=== PATIENT | female | born 1940 | race Caucasian/White ===

== ENCOUNTER 2023-11-28 09:40 | Emergency (ER) | payer MEDICARE, SELFPAY ==
[2023-11-28 09:47] VITALS: BP 122/54
[2023-11-28 10:13] LABS: % Basophils 0.9 % (0-2); % Eosinophils 1.9 % (0-6); % Immature Granulocytes 0.4 % (0-0.5); % Lymphocytes 29.3 % (20.5-51.1); % Monocytes 8.3 % (1.7-9.3); % Neutrophils 59.2 % (42.2-75.2); Absolute Eosinophils 0.1 10^3/uL (0-0.7); Absolute Lymphocytes 1.4 10^3/uL (1.2-3.4); Absolute Monocytes 0.4 10^3/uL (0.1-0.6); Absolute Neutrophils 2.8 10^3/uL (1.4-6.5); Hematocrit 35.6 % (37.0-47.0); Hemoglobin 12.1 g/dL (12.0-16.0); Mean Corpuscular Hgb 32.4 pg (27.0-31.0); Mean Corpuscular Volume 95.4 fL (81.0-99.0); Mean Platelet Volume 12.5 fL (7.4-10.4); Nucleated Red Blood Cells % 0 %; Platelet Count 212 10^3/uL (130-400); Red Blood Cell Count 3.73 10^6/uL (4.20-5.40); White Blood Cell Count 4.7 10^3/uL (4.8-10.8)
[2023-11-28 10:26] LABS: INR 1.37; PT 16.6 Sec (11.4-14.6)
[2023-11-28 11:03] LABS: ALT (SGPT) 19 U/L (0-35); AST (SGOT) 32 U/L (14-36); Albumin 4.1 g/dl (3.5-5.0); Alkaline Phosphatase 150 U/L (38-126); Blood Urea Nitrogen 28 mg/dl (7-17); Calcium 9.8 mg/dl (8.4-10.2); Carbon Dioxide 25 mmol/L (22-30); Chloride 107 mmol/L (98-107); Glucose 139 mg/dl (70-99); Potassium 4.4 mmol/L (3.5-5.1); Sodium 138 mmol/L (135-145); Total Bilirubin 0.5 mg/dl (0.2-1.3); Total Protein 6.8 g/dl (6.3-8.2); eGFR > 60.00
[2023-11-28 11:14] LABS: Troponin I < 0.012 ng/ml
--- NOTE | 2023-11-28 13:02 | ED.GENMED ---
History of Present Illness
General
Chief Complaint: Heart Rate Problem
Source: patient
Time Seen by Provider: 11/28/23 12:48
Travel History
Have you had any contact with someone who has COVID-19?: No
Do you have any symptoms of coronavirus? Fever > 100 degrees, chills, cough, shortness of breath, sore throat, loss of taste or smell, muscle aches, or headache?: No
History of Present Illness
History of Present Illness:
82-year-old female presents to the emergency room complaining of irregular and rapid heart rate. Patient has history of paroxysmal atrial fibrillation for which she takes Eliquis and diltiazem. When she woke up this morning she knew she did not
feel right. She checked her Apple Watch and it notified her that she was in A-fib. She was advised to come to the emergency room for evaluation and possible cardioversion. In triage the patient had an EKG which did show atrial fibrillation.
Currently the patient feels better than she did this morning. She has no complaints at this time.
Past History
Past History
ED Past Medical History: Arrthythmia (Atrial fib), HTN, IDDM and Other (Ulcers)
ED Past Surgical History: Orthopedic (Right hand surgery)
Social History
Tobacco: Non-smoker
Alcohol: Occasional
Drug: None
Personal:
Living: alone
Phy Exam
Physical Exam
Physical Exam:
General: Awake, Alert, Oriented X3. No acute distress.
Vitals: unremarkable
Head: Atraumatic
Eyes: Pupils equal, EOMI
Throat: Airway intact, no exudates
Neck: Trachea midline
Lungs: Clear and equal b/l
Heart: Regular rate, no murmurs
Abd: Soft, Nontender, No pulsatile mass
Neuro: Nonfocal
Skin: Warm, dry, no rash
Extremities: pulses equal b/l, no edema
Course
Orders/Labs/Results
Orders:
Orders
11/28/23 09:51
ECG [Electrocardiogram (*1)] Urgent
Reason for Study: Palpitations
11/28/23 09:52
EKG- Treatment ONCE
11/28/23 10:06
Complete Blood Count/With Diff Urgent
Comprehensive Metabolic Panel Urgent
PT/INR [Prothrombin Time] Urgent
Troponin I Urgent
Abnormal Lab Results
11/28/23
10:06
WBC 4.7 L 10^3/uL
(4.8-10.8)
RBC 3.73 L 10^6/uL
(4.20-5.40)
Hct 35.6 L %
(37.0-47.0)
MCH 32.4 H pg
(27.0-31.0)
MPV 12.5 H fL
(7.4-10.4)
PT 16.6 H Sec
(11.4-14.6)
BUN 28 H mg/dl
(7-17)
Glucose 139 H mg/dl
(70-99)
Alkaline Phosphatase 150 H U/L
(38-126)
11/28/23 10:06
11/28/23 10:06
Vital Signs
Initial and Last Documented VS:
Initial Vital Signs
Temp Pulse Resp BP Pulse Ox
98.1 F 89 18 122/54 97
11/28/23 09:47 11/28/23 09:47 11/28/23 09:47 11/28/23 09:47 11/28/23 09:47
Last Documented Vital Signs
Temp Pulse Resp BP Pulse Ox
98.1 F 65 17 122/54 97
11/28/23 09:47 11/28/23 14:45 11/28/23 14:45 11/28/23 09:47 11/28/23 09:47
MDM/Problems Addressed
Differential Diagnosis Includes:
Paroxysmal atrial fibrillation, PACs, SVT
MDM/Problems Addressed:
Patient presents after having rapid heart rate this morning when she woke up. EKG upon arrival here is A-fib however patient is spontaneously converted to normal sinus rhythm. She was observed for period of time and maintaining sinus rhythm.
Patient stable for discharge home.
*Pulse Oximetry
Patient hypoxic: no
*EKG
Interpreted by ED Provider?: Yes
Heart Rate: 135
Rate: tachycardiac
Rhythm: a-fib
[place]: normal axis
Interval: normal interval
QRS Pattern: normal QRS
Ischemia: no ischemia
*Cab Supervisor Interpretation
Rate: tachycardiac
Interpretation: abnormal
Heart Rate: 135
Rhythm: a-fib
*Critical Care Note
Total Time (30-74mins, 75-104mins- exclusive of procedures): Not Applicable
ED Attending Note
-
Portions of this chart may have been created with voice recognition software.� Occasional wrong word or��sound alike� substitutions may have occurred due to the inherent limitations of voice recognition software.
Discharge Plan
Departure
Patient Disposition: Home (Routine Discharge)
Date of Disposition: 11/28/23
Time of Disposition: 14:35
Patient with high blood pressure during this ER visit?: No
Condition: Good
Discharge Problem:
Paroxysmal A-fib
Instructions: Atrial Fibrillation (DC), BLOOD PRESSURE
Prescriptions:
No Action
medroxyprogesterone 2.5 MG tablet
2.5 mg PO DAILY
insulin aspart U-100 [Novolog U-100 Insulin aspart] 1,000 UNITS/10 ML solution
0 units SC .CONTINUOUS
Patient Comments:
insulin pump
estradiol 0.5 MG tablet
0.5 mg PO DAILY
vitamin A 8,000 UNIT capsule
8,000 unit PO DAILY
folic acid 0.4 MG tablet
0.4 mg PO DAILY
ascorbic acid (vitamin C) [Vitamin C] 500 MG tablet
500 mg PO DAILY
docosahexaenoic acid-epa 1 CAP capsule
1 cap PO DAILY
cholecalciferol (vitamin D3) 1,000 UNITS tablet
1,000 units PO DAILY
multivitamin with folic acid [Tab-A-Hannah] 1 TABLET tablet
1 tab PO DAILY
diltiazem HCl 120 MG capsule,extended release 24hr
120 mg PO DAILY Qty: 30 2RF
apixaban [Eliquis] 5 MG tablet
5 mg PO BID Qty: 60 2RF
Referrals:
NONE,* [Family Provider] -
Jovany Wallace MD [Active] -
Activity Restrictions/Additional Instructions:
Follow up with your foot and ankle surgeon
Interventions
Interventions:
*Risk Screen - Suicide Last Done: 11/28/23 13:00
*General Assessment Last Done: 11/28/23 13:00
*Neglect/Abuse Screening Last Done: 11/28/23 13:00
ED- Fall Risk Assessment Last Done: 11/28/23 13:00
*ED COVID-19 Vaccine History Last Done: 11/28/23 09:58
*Nursing Disposition Last Done: 11/28/23 15:08
ED- Cardiac Assessment Last Done: 11/28/23 13:00
ED- Pulmonary Assessment Last Done: 11/28/23 13:00
Discharge Date and Time
Discharge Date/Time: 11/28/23 15:08
Print Language: [place] ISLAND[place]
== END 2023-11-28 15:08 | disposition home or self-care (01) ==
LOC: EMR 09:40
PROVIDERS: Emergency Medicine; EMERGENCY PHYSICIAN Emergency Medicine
DX: I48.0 Paroxysmal atrial fibrillation (principal)
CPT/HCPCS: 99284; 80053; 84484; 85025; 85610; 93005

== ENCOUNTER → 2023-12-15 15:48 | Outpatient (REF) | payer MEDICARE, SELFPAY | LOC: DHCBS HW 15:48 | PROVIDERS: ATTENDING PHYSICIAN Internal Medicine Cardiovascular Disease; FAMILY PHYSICIAN Internal Medicine | DX: I48.0 Paroxysmal atrial fibrillation (principal) | CPT/HCPCS: 93306 ==

== ENCOUNTER → 2024-02-01 | Outpatient (REF) | payer MEDICARE, SELFPAY | LOC: DHSLP | PROVIDERS: ATTENDING PHYSICIAN Internal Medicine Cardiovascular Disease; FAMILY PHYSICIAN Internal Medicine | DX: G47.33 Obstructive sleep apnea (adult) (pediatric) (principal) | CPT/HCPCS: 95800 ==

== ENCOUNTER 2024-02-14 12:59 | Emergency (ER) | payer MEDICARE, SELFPAY ==
[2024-02-14 13:00] VITALS: BP 157/100
[2024-02-14 13:30] VITALS: BMI 23.7
--- NOTE | 2024-02-14 13:32 | ED.GENMED ---
History of Present Illness
General
Chief Complaint: Heart Rate Problem
Source: patient
Exam Limitations: none
Time Seen by Provider: 02/14/24 13:19
Travel History
Have you had any contact with someone who has COVID-19?: No
Do you have any symptoms of coronavirus? Fever > 100 degrees, chills, cough, shortness of breath, sore throat, loss of taste or smell, muscle aches, or headache?: No
History of Present Illness
History of Present Illness:
See MDM
Past History
Past History
ED Past Medical History: Arrthythmia (Atrial fib), HTN, IDDM and Other (Ulcers)
ED Past Surgical History: Orthopedic (Right hand surgery)
Social History
Tobacco: Non-smoker
Alcohol: Occasional
Drug: None
Personal:
Living: alone
Phy Exam
Physical Exam
Physical Exam:
See MDM
Course
Orders/Labs/Results
Orders:
Orders
02/14/24 13:04
Electrocardiogram (*1) Urgent
Reason for Study: Chest Pain
EKG- Treatment ONCE
02/14/24 13:30
Diltiazem HCl [Cardizem] 16 mg IV NOW STA
02/14/24 13:32
0.9% Sodium Chloride 1000 ml [Nss] 1,000 ml IV BOLUS
02/14/24 13:34
Complete Blood Count/With Diff Urgent
Comprehensive Metabolic Panel Urgent
Magnesium Urgent
Abnormal Lab Results
02/14/24
13:34
RBC 3.80 L 10^6/uL
(4.20-5.40)
Hct 35.0 L %
(37.0-47.0)
MCH 32.9 H pg
(27.0-31.0)
MPV 12.4 H fL
(7.4-10.4)
BUN 19 H mg/dl
(7-17)
02/14/24 13:34
02/14/24 13:34
Vital Signs
Initial and Last Documented VS:
Initial Vital Signs
Temp Pulse Resp BP Pulse Ox
99.2 F 154 20 157/100 98
02/14/24 13:00 02/14/24 13:00 02/14/24 13:00 02/14/24 13:00 02/14/24 13:00
Last Documented Vital Signs
Temp Pulse Resp BP Pulse Ox
99.2 F 135 20 141/120 96
02/14/24 13:00 02/14/24 13:37 02/14/24 13:00 02/14/24 13:37 02/14/24 13:31
MDM/Problems Addressed
Differential Diagnosis Includes:
HPI and MDM Narrative:
83-year-old female presenting for evaluation of intermittent A-fib. She felt palpitations since Tuesday. She took her nighttime diltiazem. When she woke up, she still felt the palpitations and her heart rate was fast. She took another dose in the
morning as she was instructed to ever since last time she went to A-fib. She claims compliance with Eliquis and has been cardioverted in the past
Patient is sitting in bed comfortably. She is tachycardic to the 140s. It will intermittently go to 100. Will give IV Cardizem and IV fluid and will continue to reassess
Physical exam
General: Well appearing and non-toxic
HEENT: protecting airway. Mildly dry mucous membranes
Neck: appears supple
CV: No evidence of cyanosis. Tachycardic and irregular
Resp: No accessory muscle use
Abd: Non-distended
Extremities: No deformities
Neuro: alert
Psych: Normal affect
Skin: Intact
Problems Addressed including Acute and Chronic Conditions affecting care:
1. A-fib
Acuity: acute
Prognosis: unstable
Details: Patient given IV Cardizem and attempt to chemically cardiovert
Updates
Patient has remained rate controlled while in the emergency department after only 1 dose of Cardizem. Patient states all of her symptoms have resolved and she feels comfortable. Given that infected based regardless of stool being controlled A-fib,
will not cardiovert. Her plan with her morning show producer was to increase her twice
Patient feels comfortable following this plan
Differential Diagnosis (but not limited to): A-fib, dehydration, palpitations
Testing considered: Troponin
Drug therapy (if applicable): OTC meds, please see d/c instruction regarding Rx drugs
Amount and/or Complexity of Data Reviewed
Clinical info obtained from: Patient
External data reviewed: N/A
Labs I independently reviewed (but not limited to): electrolytes within normal limits
Radiology: N/A
Pulse Ox: not hypoxic
EKG independently reviewed: A-fib with RVR, normal axis, no STEMI
Ict Sales Representative: A-fib with RVR
Critical Care: The high probability of a clinically significant, sudden or life threatening deterioration of the cardiovascular system(s) required my full and direct attention, intervention and personal management. The aggregate critical care time
was 33 minutes. This time is in addition to time spent performing reported procedures but includes the following:
[x] Data Review and interpretation
[x] Patient assessment and monitoring of vital signs
[x] Documentation
[x] Medication orders and management
Risk of Complication:
Social Determinants of health: Good social support
Discussed with other providers: N/A
Escalation of Care includes Admit/Obs: After being observed in the Emergency Department, pt stable for discharge.
Occasional wrong word or 'sound a like' substitutions may have occurred due to the inherent limitations of voice recognition software. Read the chart carefully and recognize, using context, where substitutions have occurred.
*Critical Care Note
Total Time (30-74mins, 75-104mins- exclusive of procedures): 33 min
ED Attending Note
-
Portions of this chart may have been created with voice recognition software.� Occasional wrong word or��sound alike� substitutions may have occurred due to the inherent limitations of voice recognition software.
Discharge Plan
Departure
Patient Disposition: Home (Routine Discharge)
Date of Disposition: 02/14/24
Time of Disposition: 15:28
Patient with high blood pressure during this ER visit?: No
Discharge Problem:
Rapid atrial fibrillation
Instructions: Chest Pain DCA Follow Up
Prescriptions:
No Action
medroxyprogesterone 2.5 MG tablet
2.5 mg PO DAILY
insulin aspart U-100 [Novolog U-100 Insulin aspart] 1,000 UNITS/10 ML solution
0 units SC .CONTINUOUS
Patient Comments:
insulin pump
estradiol 0.5 MG tablet
0.5 mg PO DAILY
vitamin A 8,000 UNIT capsule
8,000 unit PO DAILY
folic acid 0.4 MG tablet
0.4 mg PO DAILY
ascorbic acid (vitamin C) [Vitamin C] 500 MG tablet
500 mg PO DAILY
docosahexaenoic acid-epa 1 CAP capsule
1 cap PO DAILY
cholecalciferol (vitamin D3) 1,000 UNITS tablet
1,000 units PO DAILY
multivitamin with folic acid [Tab-A-Hannah] 1 TABLET tablet
1 tab PO DAILY
diltiazem HCl 120 MG capsule,extended release 24hr
120 mg PO DAILY Qty: 30 2RF
apixaban [Eliquis] 5 MG tablet
5 mg PO BID Qty: 60 2RF
Referrals:
UNKNOWN - PT DOES,NOT KNOW [Family Provider] -
Activity Restrictions/Additional Instructions:
Please return for any worsening symptoms.
You may return at any time if you have further concerns.
You were placed on the cardiac callback tracker. Someone from their office should call you in the next few days. If you do not hear from them in the next few days, please give them a call.
Please start taking your diltiazem twice a day.
Thank you for choosing [facility].
Interventions
Interventions:
*Risk Screen - Suicide Last Done: 02/14/24 13:00
*General Assessment Last Done: 02/14/24 13:00
*Neglect/Abuse Screening Last Done: 02/14/24 13:00
ED- Fall Risk Assessment Last Done: 02/14/24 13:32
*ED COVID-19 Vaccine History Last Done: 02/14/24 13:23
ED- Cardiac Assessment Last Done: 02/14/24 13:31
ED- Pulmonary Assessment Last Done: 02/14/24 13:31
Discharge Date and Time
Print Language: SUDANESE
[2024-02-14] MEDS: CARDIZEM 16 MG IV (13:37)
[2024-02-14] MEDS: NSS 1000 IV (13:37)
[2024-02-14 13:58] LABS: % Basophils 0.9 % (0-2); % Eosinophils 1.7 % (0-6); % Immature Granulocytes 0.4 % (0-0.5); % Lymphocytes 38.1 % (20.5-51.1); % Monocytes 8.3 % (1.7-9.3); % Neutrophils 50.6 % (42.2-75.2); Absolute Basophils 0.1 10^3/uL (0-0.2); Absolute Eosinophils 0.1 10^3/uL (0-0.7); Absolute Monocytes 0.4 10^3/uL (0.1-0.6); Absolute Neutrophils 2.7 10^3/uL (1.4-6.5); Hemoglobin 12.5 g/dL (12.0-16.0); Mean Corp Hgb Conc. 35.7 g/dL (33.0-37.0); Mean Corpuscular Hgb 32.9 pg (27.0-31.0); Mean Corpuscular Volume 92.1 fL (81.0-99.0); Mean Platelet Volume 12.4 fL (7.4-10.4); Nucleated Red Blood Cells % 0 %; Platelet Count 225 10^3/uL (130-400); Red Cell Dist. Width 14.3 % (11.5-14.5); White Blood Cell Count 5.3 10^3/uL (4.8-10.8)
[2024-02-14 14:08] LABS: ALT (SGPT) 14 U/L (0-35); AST (SGOT) 24 U/L (14-36); Albumin 4.2 g/dl (3.5-5.0); Alkaline Phosphatase 122 U/L (38-126); Blood Urea Nitrogen 19 mg/dl (7-17); Calcium 10.2 mg/dl (8.4-10.2); Carbon Dioxide 26 mmol/L (22-30); Chloride 107 mmol/L (98-107); Estimated Creatinine Clearance 46 ml/min; Glucose 75 mg/dl (70-99); Magnesium 1.9 mg/dl (1.6-2.3); Potassium 4.5 mmol/L (3.5-5.1); Sodium 140 mmol/L (135-145); Total Bilirubin 0.8 mg/dl (0.2-1.3); Total Protein 7.2 g/dl (6.3-8.2); eGFR > 60.00
[2024-02-14 15:00] VITALS: BP 114/70
== END 2024-02-14 15:35 | disposition home or self-care (01) ==
LOC: EMR 12:59
PROVIDERS: EMERGENCY PHYSICIAN Student in an Organized Health Care Education/Training Program
DX: I48.91 Unspecified atrial fibrillation (principal); I10 Essential (primary) hypertension; E11.9 Type 2 diabetes mellitus without complications
CPT/HCPCS: 99283; 96374; 96361; 80053; 83735; 85025; 93005

== ENCOUNTER 2024-05-24 22:29 | Inpatient (IN) | payer MEDICARE, SELFPAY ==
[2024-05-24 20:25] VITALS: BP 147/52
[2024-05-24 20:26] VITALS: BP 147/52; BMI 25.5
[2024-05-24 20:41] LABS: % Basophils 0.7 % (0-2); % Eosinophils 0.1 % (0-6); % Immature Granulocytes 0.7 % (0-0.5); % Lymphocytes 7.8 % (20.5-51.1); % Monocytes 10.7 % (1.7-9.3); Absolute Basophils 0.1 10^3/uL (0-0.2); Absolute Immature Granulocytes 0.1 10^3/uL (0-0.05); Absolute Lymphocytes 0.6 10^3/uL (1.2-3.4); Absolute Monocytes 0.8 10^3/uL (0.1-0.6); Absolute Neutrophils 6.2 10^3/uL (1.4-6.5); Hematocrit 25.5 % (37.0-47.0); Hemoglobin 8.9 g/dL (12.0-16.0); Mean Corp Hgb Conc. 34.9 g/dL (33.0-37.0); Mean Corpuscular Hgb 32.8 pg (27.0-31.0); Mean Corpuscular Volume 94.1 fL (81.0-99.0); Nucleated Red Blood Cells % 0 %; Platelet Count 134 10^3/uL (130-400); Red Blood Cell Count 2.71 10^6/uL (4.20-5.40); Red Cell Dist. Width 13.7 % (11.5-14.5); White Blood Cell Count 7.7 10^3/uL (4.8-10.8)
[2024-05-24] MEDS: TYLENOL 650 MG PO (20:51)
--- NOTE | 2024-05-24 20:52 | ED.GENMED ---
History of Present Illness
General
Chief Complaint: Breathing Problem
Source: patient
Exam Limitations: none
Time Seen by Provider: 05/24/24 20:42
Nursing documentation reviewed up to this point in time: agreed with
History of Present Illness
History of Present Illness:
83-year-old female with a past medical history of hypertension, diabetes, atrial fibrillation on Eliquis (follows with Dr. Wallace) who presents to the ER for evaluation of nausea and shortness of breath. Patient reports that she has been feeling
unwell since yesterday morning when she woke up and symptoms have been constant and generally worsening. She notably had cardiac ablation 2 days ago for her A-fib at [facility]; woke up the next day with nausea and feeling mildly
short of breath. She says she was coughing throughout the day. This morning increasingly short of breath which prompted trip to the ER. She denies any chest pain. She denies any subjective fever although was noted to have a low-grade fever here.
She denies any swelling or pain in the legs. While she has had nausea she denies any vomiting or diarrhea and denies any abdominal pain. She denies similar issues in the past.
Past History
Past History
ED Past Medical History: Arrthythmia (Atrial fib), HTN, IDDM and Other (Ulcers)
ED Past Surgical History: Orthopedic (Right hand surgery)
Social History
Tobacco: Non-smoker
Alcohol: Occasional
Drug: None
Personal:
Living: alone
Review of Systems
Review of Systems
All Other Systems: ROS reviewed and negative except as documented in HPI and ROS
Constitutional: Reports fatigue; Denies fever or chills
EENT: Denies sore throat or runny nose
Respiratory: Reports cough and trouble breathing
Cardiac: Denies chest pain or palpitations
ABD/GI: Reports nausea; Denies abdominal pain, vomiting or diarrhea
: Denies flank pain
Musculoskeletal: Denies neck pain or back pain
Neurological: Denies dizzy or headache
Phy Exam
Physical Exam
Physical Exam:
General: Awake, alert, oriented x3; no acute distress
Head: Normocephalic, atraumatic
Eyes: Conjunctiva normal, sclera anicteric
Throat: Airway intact, handling secretions
Neck: Trachea midline, no JVD
Lungs: Patient is hypoxic to the mid 80s requiring 6 L nasal cannula; she has moderate tachypnea with respiratory rate in the 30s but no increased work of breathing; on lung auscultation breath sounds are diminished at the lung bases, basilar rales
on the right
Heart: Tachycardia with regular rhythm, no murmurs, gallops, or rubs appreciated
Abd: Soft, non distended, nontender
Rectal: Dark brown stool; Hemoccult is negative
Neuro: No gross deficit
Skin: no rash
Extremities: No edema in extremities, equal pulses in all extremities
Scores
Heart Failure Risk
Heart Failure Risk Score: Not Applicable
Heart Score for Chest Pain Patients
STEMI patient?: Not applicable
Withdrawal Assessment of Alcohol
Withdrawal Assessment Completed?: Not applicable
Sepsis
Sepsis Screening
Sepsis Assessment: Sepsis
Sepsis Screen
Sepsis Screen: Sepsis
Date: 05/24/24
Time: 21:09
Course
Orders/Labs/Results
Orders:
Orders
05/24/24 20:21
Electrocardiogram (*1) Urgent
Reason for Study: Shortness of Breath
EKG- Treatment ONCE
05/24/24 20:34
Complete Blood Count/With Diff Urgent
Comprehensive Metabolic Panel Urgent
Troponin I Urgent
05/24/24 20:35
COVID-19 Antigen Urgent
Source: Nasal Swab
Lactic Acid Urgent
Influenza A+B Rapid Molecular Urgent
MICHAEL Source: Nasal Swab
Specimen Description:
05/24/24 20:42
Blood Culture Urgent
MICHAEL Source: Blood/Venous
Specimen Description:
Acetaminophen [Tylenol] 650 mg PO NOW STA
05/24/24 20:48
CR Chest Portable - 1 View Urgent
Comment:
Reason For Exam: sob, fever
Reason Study Needs to be Portable: Unable to Transport
05/24/24 20:56
Piperacillin/Tazo 3.375 Gram [Zosyn] 3.375 gram in 50 ml IV NOW
Vancomycin [Vancocin] 1,250 mg 0.9% Sodium Chloride 250 ml [Nss] 250 ml IV NOW
05/24/24 20:57
0.9% Sodium Chloride 1000 ml [Nss] 1,000 ml IV BOLUS
05/24/24 21:12
Blood Culture Routine
MICHAEL Source: Blood/Venous
Specimen Description:
Abnormal Lab Results
05/24/24
20:34
RBC 2.71 L 10^6/uL
(4.20-5.40)
Hgb 8.9 L g/dL
(12.0-16.0)
Hct 25.5 L %
(37.0-47.0)
MCH 32.8 H pg
(27.0-31.0)
MPV 13.0 H fL
(7.4-10.4)
Abs Immat Gran (auto) 0.1 H 10^3/uL
(0-0.05)
Absolute Lymphs (auto) 0.6 L 10^3/uL
(1.2-3.4)
Absolute Monos (auto) 0.8 H 10^3/uL
(0.1-0.6)
Immature Gran % 0.7 H %
(0-0.5)
Neutrophils % 80.0 H %
(42.2-75.2)
Lymphocytes % 7.8 L %
(20.5-51.1)
Monocytes % 10.7 H %
(1.7-9.3)
Carbon Dioxide 19 L mmol/L
(22-30)
BUN 29 H mg/dl
(7-17)
Glucose 119 H mg/dl
(70-99)
AST 66 H U/L
(14-36)
ALT 44 H U/L
(0-35)
Troponin I 1.630 H* ng/ml
Total Protein 6.0 L g/dl
(6.3-8.2)
05/24/24 20:34
05/24/24 20:34
Vital Signs
Initial and Last Documented VS:
Initial Vital Signs
Pulse Resp
101 35
05/24/24 20:23 05/24/24 20:23
Last Documented Vital Signs
Temp Pulse Resp BP Pulse Ox
37.9 C 88 31 147/52 94
05/24/24 20:26 05/24/24 20:30 05/24/24 20:30 05/24/24 20:26 05/24/24 20:39
MDM/Problems Addressed
Differential Diagnosis Includes:
Pneumonia, bronchitis, aspiration pneumonitis, pneumothorax, PE less likely with patient on Eliquis
MDM/Problems Addressed:
83-year-old female presents for evaluation of shortness of breath, fatigue, nausea for the past 48 hours status post recent cardiac ablation. She arrives to us tachycardic, tachypneic, low-grade fever and hypoxic. Placed on 6 L nasal cannula with
improvement in oxygenation and respiratory rate. Physical exam as above. Will place an IV check labs including a CBC and a CMP, lactate, blood cultures. Check swab for COVID and flu. Will check chest x-ray and EKG. Monitor closely reassess
after the above.
Labs reviewed: CBC shows no leukocytosis, anemia to 8.9�this is decreased from a value of greater than 12 in January. Patient denies any black or bloody stools. Rectal exam performed here Hemoccult negative. Will need to continue to monitor.
Chemistry shows slightly elevated BUN to creatinine ratio, IV fluids in progress. Marginal transaminitis possibly related to sepsis/infection. COVID swab negative. Chest x-ray reviewed by me appears to show right lower lobe opacity�my clinical
suspicion at this point is likely aspiration pneumonitis/pneumonia status post cardiac ablation. Will treat with antibiotics. Provide some IV fluids. Case discussed with hospitalist for admission for acute hypoxic respiratory failure secondary to
pneumonia.
Troponin sent in triage�elevated to 1.6 suspect secondary to recent cardiac procedure. She is chest pain-free. Will need to trend this number but do not suspect ACS at this time.
Chronic conditions affecting care:
Atrial fibrillation
*Radiology
Radiology exam reviewed: preliminary read by ED provider (Right lower lung pneumonia) and radiology read reviewed
*Pulse Oximetry
Patient hypoxic: yes
*EKG
Interpreted by ED Provider?: Yes
Heart Rate: 91
Rate: normal
Rhythm: sinus
[place]: normal axis
Interval: normal interval
QRS Pattern: normal QRS
Ischemia: non-specific ST changes
*Critical Care Note
Total Time (30-74mins, 75-104mins- exclusive of procedures): Not Applicable
Data Reviewed
Review of Other/Old Records Reveals: Labs and Records
Source: patient and records
Patient Management
Discussion with other providers: Hospitalist (Discussed with hospitalist)
Escalation/DeEscalation of care consider admission/obs:
Admission indicated
ED Attending Note
-
Portions of this chart may have been created with voice recognition software.� Occasional wrong word or��sound alike� substitutions may have occurred due to the inherent limitations of voice recognition software.
Discharge Plan
Departure
Presentation/result/management discussed w/ accepting MD/DO: Hospitalist
Discharge Problem:
Acute hypoxemic respiratory failure, Pneumonia
Prescriptions:
No Action
medroxyprogesterone 2.5 MG tablet
2.5 mg PO DAILY
insulin aspart U-100 [Novolog U-100 Insulin aspart] 1,000 UNITS/10 ML solution
0 units SC .CONTINUOUS
Patient Comments:
insulin pump
estradiol 0.5 MG tablet
0.5 mg PO DAILY
vitamin A 8,000 UNIT capsule
8,000 unit PO DAILY
folic acid 0.4 MG tablet
0.4 mg PO DAILY
ascorbic acid (vitamin C) [Vitamin C] 500 MG tablet
500 mg PO DAILY
docosahexaenoic acid-epa 1 CAP capsule
1 cap PO DAILY
cholecalciferol (vitamin D3) 1,000 UNITS tablet
1,000 units PO DAILY
multivitamin with folic acid [Tab-A-Hannah] 1 TABLET tablet
1 tab PO DAILY
diltiazem HCl 120 MG capsule,extended release 24hr
120 mg PO DAILY Qty: 30 2RF
apixaban [Eliquis] 5 MG tablet
5 mg PO BID Qty: 60 2RF
Interventions
Interventions:
*Risk Screen - Suicide Last Done: 05/24/24 20:26
*General Assessment Last Done: 05/24/24 20:26
*Neglect/Abuse Screening Last Done: 05/24/24 20:26
*ED COVID-19 Vaccine History Last Done: 05/24/24 20:26
ED- Cardiac Assessment Last Done: 05/24/24 20:39
ED- Pulmonary Assessment Last Done: 05/24/24 20:39
Discharge Date and Time
Print Language: ITALIAN
[2024-05-24 20:54] LABS: Lactic Acid 0.9 mmol/L (0.7-2.0)
[2024-05-24 20:56] LABS: ALT (SGPT) 44 U/L (0-35); AST (SGOT) 66 U/L (14-36); Albumin 3.5 g/dl (3.5-5.0); Alkaline Phosphatase 106 U/L (38-126); Blood Urea Nitrogen 29 mg/dl (7-17); Calcium 9.4 mg/dl (8.4-10.2); Carbon Dioxide 19 mmol/L (22-30); Chloride 104 mmol/L (98-107); Estimated Creatinine Clearance 46 ml/min; Glucose 119 mg/dl (70-99); Potassium 3.9 mmol/L (3.5-5.1); Sodium 138 mmol/L (135-145); eGFR > 60.00
[2024-05-24 21:00] VITALS: BP 148/56
[2024-05-24 21:02] LABS: COVID-19 Antigen Negative (Negative)
[2024-05-24] MEDS: ZOSYN 50 IV (21:11)
[2024-05-24] MEDS: NSS 1000 IV (21:12)
--- NOTE | 2024-05-24 21:15 | HPS.HSE ---
Family Physician
-
Family Physician:
Chief Complaint
-
Shortness of breath
History of Present Illness
This is an 83-year-old female who has a past medical history of atrial fibrillation on anticoagulation, hypertension, diabetes presenting to the emergency department for approximately 1 day history of nausea and shortness of breath.
Patient has a history of recurrent proximal atrial fibrillation status post cardioversion last year and underwent a ablation procedure for the atrial fibrillation at [facility] 2 days ago. She was intubated for the procedure. The following morning the
patient arose feeling nauseous and weak. She reported feeling short of breath and was coughing throughout the day. The cough was nonproductive. She denied fevers at home. This a.m. she had rapid worsening of shortness of breath which prompted
her to come to the emergency department. She also had episode of paroxysmal atrial fibrillation for which she took flecainide to terminate. She again continues to have nonproductive cough. Patient denies further vomiting. She denies any chest
pain. She denies any palpitations lightheadedness or dizziness. She denies any lower extremity swelling. She denies orthopnea or PND.
Patient denies any history of tobacco use asthma or COPD. She denies any other recent hospital admissions.
On arrival in the Emergency Department she had a temp of 100.3, she was hypoxic requiring 6 L to maintain a sat of 94%. Blood pressure was stable at 147/50 with a pulse of 88. ECG showed normal sinus rhythm at a rate of [address] or
T wave changes. White count was 7.7, hemoglobin was down to 8.9 and a platelet count was stable. Chemistries were unremarkable. Given drop in hemoglobin from 6 months ago (was 12 at that time) patient had a rectal exam which was brown stool with
and occult heme negative. Chest x-ray shows right lower lobe infiltrate, possibly right middle lobe infiltrate. COVID negative.
Medical History
Past Medical History
Past Medical History: Reports Arrhythmia (atrial fibrillation s/p ablation), GERD, HTN and NIDDM
Past Surgical History: Reports None
Social History
Tobacco: Non-smoker
Alcohol: None
Drug: None
Living: With Family
Employment: Retired
Family History
Family History: Not pertinent
Allergies / Home Medications
Allergies reflects when Allergies were last updated in [facility].
Home Medications with original date entered in [facility]
Allergy/Medication List:
Allergies
Allergy/AdvReac Type Severity Reaction Status Date / Time
Sulfa (Sulfonamide Allergy Unknown Verified 02/14/24 13:03
Antibiotics)
valsartan Allergy Unknown Verified 02/14/24 13:03
Home Medications
ascorbic acid (vitamin C) 500 mg tablet (Vitamin C) 500 mg PO DAILY Supplement 11/19/21
cholecalciferol (vitamin D3) 25 mcg (1,000 unit) tablet 1,000 units PO DAILY Supplement 11/19/21
insulin aspart U-100 100 unit/mL subcutaneous solution (Novolog U-100 Insulin aspart) 0 units SC .CONTINUOUS Diabetes 11/19/21
multivitamin with folic acid 400 mcg tablet (Tab-A-Hannah) 1 tab PO DAILY Supplement 11/19/21
apixaban 5 mg tablet (Eliquis) 5 mg PO BID #60 tabs 11/20/21
acetaminophen 500 mg tablet (Tylenol Extra Strength) 500 mg PO Q6HPRN PRN mild pain 05/24/24
aspirin 81 mg chewable tablet 81 mg PO DAILY 05/24/24
diltiazem HCl 120 mg capsule,extended release 24 hr 120 mg PO BID 05/24/24
flecainide 100 mg tablet 100 mg PO [id number] PRN A-fib 05/24/24
losartan 25 mg tablet 25 mg PO HS 05/24/24
pantoprazole 40 mg tablet,delayed release 40 mg PO DAILY 05/24/24
peg 400-propylene glycol (PF) 0.4 %-0.3 % eye drops in a dropperette (Systane (PF)) 1 drp BOTH EYES Q4HPRN PRN dry eyes 05/24/24
Review of Systems
-
History Source: Patient
Constitutional: Reports Fatigue
Respiratory: Reports Cough and Trouble Breathing
Cardiac: Reports No Symptoms
Abdomen/GI: Reports Nausea
: Reports No Symptoms
Musculoskeletal: Reports No Symptoms
Neurological: Reports No Symptoms
Endocrine: Reports No Symptoms
Hematologic/Lymphatic: Reports No Symptoms
Psych: Reports No Symptoms
Physical Exam
Vital Signs
Vital Signs
Temp Pulse Resp BP Pulse Ox
100.3 F 88 31 147/52 94
05/24/24 20:26 05/24/24 20:30 05/24/24 20:30 05/24/24 20:26 05/24/24 20:39
Physical Exam
General: Well Developed, Well Nourished, Comfortable and Conversant
HEENT: NormoCephalic, Anicteric, Moist mucous membranes, PERRLA and Oxygen
Respiratory: Crackles (Right lower lobe crackles. Mild wheezes), Non Labored Respirations and Decreased Breath Sounds
Cardiac: S1/S2 and Regular Rhythm
Breast: Deferred by me
GI: Soft, Non Tender, Non Distended and Normal Bowel Sounds
Rectal: Brown
Genito-urinary: Deferred by me
Musculoskeletal: No Clubbing, No Cyanosis and No Edema
Skin: Warm
Neuro: AO x 3
Hematologic/Lymphatic: No Lymphadenopathy
Psych: Calm
Laboratory Results
-
05/24/24 20:34
05/24/24 20:34
Laboratory Results
Lactic Acid 0.9 mmol/L (0.7-2.0) 05/24/24 20:35
Total Bilirubin 1.0 mg/dl (0.2-1.3) 05/24/24 20:34
AST 66 U/L (14-36) H 05/24/24 20:34
ALT 44 U/L (0-35) H 05/24/24 20:34
Alkaline Phosphatase 106 U/L (38-126) 05/24/24 20:34
Troponin I 1.630 ng/ml H* 05/24/24 20:34
Data Reviewed
-
Diagnostic Radiology: Image Personally Visualized and interpreted
Medical Tests (Nuc Med, Echo, EKG etc): Image Personally Visualized and interpreted
Lab Data: Labs Reviewed by me
Old Records: Reviewed
Impression/Plan
-
IMPRESSION:
83-year-old female with history of atrial fibrillation with 2 days status post ablation presenting with worsening shortness of breath, fever, fatigue, hypoxia requiring supplemental oxygen, found to have right-sided infiltrates on x-ray and elevated
troponin of 1.6.
PLAN:
1. PNA - Right lower lobe / multifocal pna with fever, hypoxia and non-productive cough. This occured s/p ablation for which she was intubated and extubated c/w procedure related vs aspiration pneumonia. Negative COVID testing.
- admit to imu (given elevated troponin and high O2)
- sputum culture if available
- iv broad spec abx with vancomycin and zosn
- mrsa swab
- supportive care with incentive spirometry, o2, antitussives and antiemetics
2. Elevated troponin - 2 days s/p ablation procedure. Trop 1.6. No chest pain. No ischemia on ECG (non-specific ST changes). Demand ischemia given hypoxemia with secondary trop elevation from ablation.
- give aspirin 324 mg x 1
- place on heparin gtt for now, hold eliquis
- telemetry and trend trop q6. ECG in am
- echo in am
- cardiology consult.
3. AFIb - Normal sinus rhythm and hemodynamically stable
- continue diltiazem 120 mg bid
- heparin gtt for now, hold apixaban
- flecainide 200mg po prn afib
4. DM II
- patient own pump
- accuchecks achs
5 Anemia - Hgb 8.9, down from 12 3 mnths ago. No h/o gi bleed. Heme negative brown stool in ED. MCV unchanged.
- trend hemoglobin for now
- check iron panel
- type and screen in am
DVT PPX - on heparin gtt
Code Status - full code
[2024-05-24 22:00] VITALS: BP 106/88
[2024-05-24] MEDS: VANCOCIN 300 ML IV (22:09)
[2024-05-24] MEDS: VANCOCIN 300 MG IV (22:09)
[2024-05-24] MEDS: LOW STRENGTH ASPIRIN 162 MG PO (22:09)
[2024-05-24 22:12] VITALS: BP 133/58
[2024-05-24] MEDS: COZAAR 25 MG PO (22:19)
[2024-05-24 22:29] VITALS: BMI 25.0
[2024-05-24 22:30] LABS: Hemoglobin 8.5 g/dL (12.0-16.0); Mean Corp Hgb Conc. 35.4 g/dL (33.0-37.0); Mean Corpuscular Hgb 33.1 pg (27.0-31.0); Mean Corpuscular Volume 93.4 fL (81.0-99.0); Mean Platelet Volume 12.8 fL (7.4-10.4); Platelet Count 130 10^3/uL (130-400); Red Blood Cell Count 2.57 10^6/uL (4.20-5.40); Red Cell Dist. Width 13.7 % (11.5-14.5); White Blood Cell Count 7.2 10^3/uL (4.8-10.8)
[2024-05-24] MEDS: HEPARIN 25000 UNITS/250 ML IV (22:40)
[2024-05-24 22:42] LABS: APTT 40.2 Sec (23.4-35.0)
[2024-05-24 23:00] VITALS: BP 129/56
[2024-05-25] VITALS (15 sets, daily range): BP systolic 104–167; BP diastolic 49–99; PULSE 104; O2SAT 93; BMI 25.0
--- NOTE | 2024-05-25 02:57 | PTCARENOTE ---
Patient arrived on unit via stretcher from emergency department. Able to ambulate from stretcher to bed w/guarded assist. On 6L NC, sat 99%. Heparin gtt infusing at 800 units/hr, through right AC PIV. Admission completed, nursing shift assessment
completed, see documentation. [facility] full bed bath completed. Plan of care discussed, questions answered, patient verbalized understanding. Patient resting in bed, call renee in reach.
[2024-05-25] MEDS: ZOSYN 50 IV ×2 (04:30→11:45)
[2024-05-25 05:18] LABS: Hematocrit 26.9 % (37.0-47.0); Hemoglobin 9.2 g/dL (12.0-16.0); Mean Corp Hgb Conc. 34.2 g/dL (33.0-37.0); Mean Corpuscular Hgb 32.6 pg (27.0-31.0); Mean Corpuscular Volume 95.4 fL (81.0-99.0); Mean Platelet Volume 12.5 fL (7.4-10.4); Platelet Count 134 10^3/uL (130-400); Red Blood Cell Count 2.82 10^6/uL (4.20-5.40); Red Cell Dist. Width 13.9 % (11.5-14.5); White Blood Cell Count 7.4 10^3/uL (4.8-10.8)
[2024-05-25 05:24] LABS: APTT 95.3 Sec (23.4-35.0)
[2024-05-25 05:56] LABS: Blood Urea Nitrogen 27 mg/dl (7-17); Calcium 9.3 mg/dl (8.4-10.2); Carbon Dioxide 20 mmol/L (22-30); Chloride 107 mmol/L (98-107); Estimated Creatinine Clearance 46 ml/min; Glucose 93 mg/dl (70-99); Iron 46 ug/dl (37-170); Sodium 139 mmol/L (135-145); eGFR > 60.00
[2024-05-25 06:05] LABS: Percent Saturation 23 % (20-50); Total Iron Binding Capacity 197 ug/dl (265-497)
[2024-05-25] MEDS: VENTOLIN NEBULES 2.5 MG INH (08:07)
[2024-05-25 08:08] LABS: Glucose - Point of Care 103 mg/dl (70-99)
[2024-05-25] MEDS: PROTONIX 40 MG PO (08:38)
[2024-05-25] MEDS: VITAMIN C 500 MG PO (08:39)
[2024-05-25] MEDS: LOW STRENGTH ASPIRIN 81 MG PO (08:39)
[2024-05-25] MEDS: CARDIZEM CD 120 MG PO ×2 (08:39→21:33)
[2024-05-25] MEDS: PT'S OWN INSULIN PUMP - NovoLOG 0.35 UNIT SC (08:40)
--- NOTE | 2024-05-25 08:56 | PHA.VAN.IN ---
Assessment
- Assessment
Renal Function: Appears similar to baseline
Concomitant Antimicrobials: piperacillin/tazobactam
AUC Dosing Plan
- Dosing Variables
Dosing Weight (kg): 66
Dosing CrCl (ml/min): 46
Vd coefficient (L/kg): 0.7
- Empiric Dosing
Initial / Loading Dose: 1500mg - 05/24 22:09
Maintenance Regimen: Vanc 1000mg Q24H starting at 1200 then 0600
Estimated AUC (mcg*h/mL): 519
Estimated Peak (mcg*h/mL): 33.8
Estimated Trough (mcg/ml): 12.7
Estimated Half Life (H): 16.3
- Monitoring
No levels ordered at this time: consider levels in next few days
Pharmacokinetics Vancomycin I
- -
Patient Age: 83
Patient Sex: Female
Vancomycin Day #: 1
Indication: Pulmonary/Respiratory
Requesting Provider: Dr. Delcid
Pertinent Antimicrobial Allergies:
sulfonamide antibiotics - skin peels
Height / Weight:
Height 5 ft 4 in
Actual Weight 66.1 kg
Pertinent Past Medical History: DM II
- Vital Signs / Lab Results
Temp Pulse Resp BP Pulse Ox
98.3 F 98 32 156/63 95
05/25/24 04:49 05/25/24 08:09 05/25/24 08:09 05/25/24 06:00 05/25/24 08:09
Lab Results - Hematology
05/24/24 05/24/24 05/25/24
20:34 22:04 04:49
WBC 7.7 7.2 7.4
Lab Results - Chemistry
05/24/24 05/25/24
20:34 04:49
BUN 29 H 27 H
Creatinine 0.8 0.8
Estimated Creat Clear 46 46
Albumin 3.5
05/24/24
20:35
Lactic Acid 0.9
Microbiology Results
05/25/24 04:49 Nasal Screen MRSA (PCR) - Final
Nose Staph aureus MRSA
05/24/24 20:35 Influenza Types A & B (MIKEY) - Final
Nasal Swab Negative for Influenza A & B, NAAT
Negative results must be combined with clinical observations
and patient history.
Nucleic Acid Amplification test (NAAT)performed on the
[employer] platform.
--- NOTE | 2024-05-25 09:33 | CON.CAR ---
Addendum entered and electronically signed by Rodriguez Bell MD 05/25/24 16:02:
I saw and examined the patient.
The Break And Load Operator's note was reviewed and I agree with the note.
Comment:
GEN: No distress, awake, Ox3
HEENT: supple, anicteric, mmm
LUNGS: bilat rhonchi
CV: Reg, S1/S2, 1/6 syst LSB, no gallop
ABD: soft, BS+, NT/ND
EXT: No edema
NEURO: Gross non-focal
SKIN: No rash
Plan:
She has a past medical history of paroxysmal atrial fibrillation, frequent UTIs, orthostasis, diabetes and hypertension who had a A-fib ablation by Dr. Davion Santana at [facility] May 22, 2024. She stayed 1 night and went home
for 24 hours and started having more A-fib. She took 1 dose of flecainide. She then developed shortness of breath cough, and some low-grade fevers. She also had some orthopnea. She denies any significant chest pains. She was found to have
possible pneumonia and also has an elevated proBNP of 2700.
I suspect she has a combination of pneumonia and acute heart failure with preserved ejection fraction.
Her abnormal troponins are improving and likely a result of the A-fib ablation.
Continue antibiotics. Start Lasix 40 mg IV twice daily.
She remains in sinus rhythm. Continue diltiazem, Cozaar, and aspirin.
Continue to follow on telemetry.
Original Note:
Consultation
Consultation Request
Date/Time Consultation Performed: 05/25/24
Requesting Provider: Dr. Delcdi
Performing Provider: Natasha Gomez PA-C for Dr. Bell
Reason for Consultation: SOB s/p recent ablation
Medical History
-
Chief Complaint: SOB
History of Present Illness:
Patient is an 83-year-old female with past medical history of type 1 diabetes, hypertension, orthostatic hypotension, frequent UTIs, paroxysmal atrial fibrillation who underwent ablation by Dr. Santana at [facility] 05/22/2024. She states she was
intubated for procedure and during procedure her blood pressure dropped. She was observed overnight and discharged 05/23. She reports the evening of 05/23 she noted she had gone back into atrial fibrillation. She called [facility] and was advised to
take flecainide 150 mg x 1 which she did and successfully restored sinus rhythm. She denies feelings of A-fib since that time. She states then also starting Tuesday evening she developed shortness of breath which progressed throughout the day
yesterday resulting in her coming to the ER for evaluation. She denies lower extremity edema. She was not on diuretic therapy before. She is listed to have a history of allergy to sulfa with reaction of skin peeling, however states this was 40
years ago. She reports that it was 'significant', however she never required hospitalization, does not recall diagnosis of SJS. Hgb 8.9, patient reports at last office visit with PCP was told her hgb was 'low but now low enough to cause concern.'
PMH:
Symptomatic, paroxysmal atrial fibrillation
Status post ablation at [facility] 05/22/2024, Dr. Santana
Chronic anticoagulation with Eliquis
Type 1 diabetes
Hypertension
History of orthostatic hypotension
Frequent UTIs
Recently diagnosed mild obstructive sleep apnea 01/2024
Past Medical History
Past Medical History: Other (in HPI)
Social History
Tobacco: Non-Smoker
Alcohol: None
Living: With Family
Employment: Retired
Family History
Family History: Hypertension and Other (CVA in mother)
Allergies / Home Medications
Allergy/AdvReac Type Severity Reaction Status Date / Time
Sulfa (Sulfonamide Allergy skin peels Verified 05/24/24 21:55
Antibiotics)
valsartan Allergy Unknown Verified 05/24/24 21:35
�Medication �Instructions �Recorded �Confirmed �Type
ascorbic acid (vitamin C) 500 mg 500 mg PO DAILY Supplement 11/19/21 05/24/24 History
tablet (Vitamin C)
cholecalciferol (vitamin D3) 25 1,000 units PO DAILY Supplement 11/19/21 05/24/24 History
mcg (1,000 unit) tablet
insulin aspart U-100 100 unit/mL 0 units SC .CONTINUOUS Diabetes 11/19/21 05/24/24 History
subcutaneous solution (Novolog
U-100 Insulin aspart)
multivitamin with folic acid 400 1 tab PO DAILY Supplement 11/19/21 05/24/24 History
mcg tablet (Tab-A-Hannah)
apixaban 5 mg tablet (Eliquis) 5 mg PO BID #60 tabs 11/20/21 05/24/24 Rx
acetaminophen 500 mg tablet 500 mg PO Q6HPRN PRN mild pain 05/24/24 05/24/24 History
(Tylenol Extra Strength)
aspirin 81 mg chewable tablet 81 mg PO DAILY Blood Clot 05/24/24 05/24/24 History
Prevention/Tx
diltiazem HCl 120 mg 120 mg PO BID Heart 05/24/24 05/24/24 History
capsule,extended release 24 hr Disease/Condition
flecainide 100 mg tablet 100 mg PO [id number] PRN A-fib 05/24/24 05/24/24 History
losartan 25 mg tablet 25 mg PO HS Blood Pressure 05/24/24 05/24/24 History
pantoprazole 40 mg tablet,delayed 40 mg PO DAILY GERD 05/24/24 05/24/24 History
release
peg 400-propylene glycol (PF) 0.4 1 drp BOTH EYES Q4HPRN PRN dry eyes 05/24/24 05/24/24 History
%-0.3 % eye drops in a dropperette
(Systane (PF))
Review of Systems
-
History Source: Patient
All other systems: Negative unless noted
Physical Exam
Vital Signs
Temp Pulse Resp BP Pulse Ox
98.9 F 98 32 156/63 95
05/25/24 07:15 05/25/24 08:09 05/25/24 08:09 05/25/24 06:00 05/25/24 08:09
Lab Results
05/25/24 04:49
05/25/24 04:49
Troponin I Cancelled 05/25/24 07:31
Physical Exam
General: Other (tachypneic)
HEENT: Normocephalic, Anicteric and Moist Mucous Membranes
Respiratory: Other (decreased BS B/L)
Cardiac: S1/S2, Regular Rhythm and Other (tachycardic)
GI: Soft, Non Tender, Non Distended and Normal Bowel Sounds
Musculoskeletal: No Clubbing, No Cyanosis and No Edema
Skin: Warm, Dry and Other (B/L groin sites c/d/i, soft, NTTP)
Neuro: AO x 3
Impression / Plan
-
Primary Control Tower Operator: Dr. JOEL Wallace
Primary EP: Dr. Santana of [facility]
Assessment:
Presentation with SOB
Acute HFpEF
PNA
Elevated troponin, suspected nonischemic myocardial injury secondary to recent ablation
Acute on chronic anemia, suspected post procedure
Symptomatic, paroxysmal atrial fibrillation
Status post ablation at [facility] 05/22/2024, Dr. Santana
Chronic anticoagulation with Eliquis
Type 1 diabetes
Hypertension
History of orthostatic hypotension
Frequent UTIs
Recently diagnosed mild obstructive sleep apnea 01/2024
ECHO 12/15/23: EF 60%, mild MR, mild TR, PAP 35 mmHg
Plan:
-Patient presents with shortness of breath after recent afib ablation at [facility] 05/22.
-Patient being treated for possible pneumonia per primary service with antibiotics
-With concern for acute heart failure. Chest x-ray with evidence of severe cardiogenic pulmonary edema. proBNP ordered by me.
-Noted to have prior allergy/intolerance to sulfa with reaction of 'skin peeling'. On discussion with patient she reports it was 40 years ago and 'significant' but did not require hospitalization and does not recall diagnosis of SJS. Discussed
with pharmacy, low degree of cross-reactivity. will trial on IV lasix.
-Continue supplemental oxygen, wean as able
-Check echo
-remains in SR. she did have brief episode of afib requiring flecainide at home 05/23 PM. follow on tele. continue diltiazem
-continue asa. would transition IV heparin back to OP eliquis. follow hgb, 8.9 on 05/25. B/L groin sites soft, NTTP
-Elevated troponin likely secondary to recent ablation. No chest pain. EKG without acute ischemic change. managing as nonischemic myocardial injury
-d/w hospitalist
-d/w nursing
Data Reviewed
-
EKG: Tracing Personally Visualized and interpreted
Radiology: Report Reviewed by me
Medical Tests (Nuc Med, Echo etc): Report Reviewed by me
Labs: Labs Reviewed by me
Old Records: Reviewed
--- NOTE | 2024-05-25 10:35 | W.PN.HOSP.TC ---
Today's Communication/Plan
-
IV lasix
check procal
wean o2 as tolerated
ECHO
Assessment / Plan
Assessment / Plan
IMPRESSION:
83-year-old female with history of atrial fibrillation with 2 days status post ablation presenting with worsening shortness of breath, fever, fatigue, hypoxia requiring supplemental oxygen, found to have right-sided infiltrates on x-ray and elevated
troponin of 1.6.
PLAN:
Acute hypoxic respiratory insufficiency likely secondary to pulmonary edema likely secondary to acute heart failure exacerbation unknown type
-Chest x-ray noted with pulmonary edema
-proBNP pending
-Echo
-IV Lasix 40 mg twice daily started by cardiology. Trend creatinine.
PNA - Right lower lobe / multifocal pna with fever, hypoxia and non-productive cough. This occured s/p ablation for which she was intubated and extubated c/w procedure related vs aspiration pneumonia. Negative COVID testing.
- sputum culture if available
- iv broad spec abx with vancomycin and zosyn. No threshold to stop antibiotics.
-Check procalcitonin. Could be underlying fluid overload. White count normal. No productive cough.
- supportive care with incentive spirometry, o2, antitussives and antiemetics
Elevated troponin - 2 days s/p ablation procedure. Trop 1.6. No chest pain. No ischemia on ECG (non-specific ST changes). Demand ischemia given hypoxemia with secondary trop elevation from ablation.
- give aspirin 324 mg x 1
-DC heparin drip continue Eliquis
- telemetry and trend trop q6.
- echo i
- cardiology consult.
paroxysmal atrial fibrillation s/p ablation
- continue diltiazem 120 mg bid
- Cont apixaban
DM II
- patient own pump
- accuchecks achs
Anemia - Hgb 8.9, down from 12 3 mnths ago. No h/o gi bleed. Heme negative brown stool in ED. MCV unchanged.
- trend hemoglobin for now
- appropriate iron stores. check b12/folate
- type and screen in am
DVT PPX - Eliquis
Code Status - full code
Anticipated Discharge: > 48 hours
Subjective/Interval History
-
Date of Service: May 25, 2024
states of persistent cough
no phelgm
denies chest pain
Objective Data
-
Labs:
Laboratory Results
05/24/24 05/25/24 05/25/24
22:04 04:49 11:00
WBC 7.4
Hgb 9.2 L
Hct 26.9 L
Plt Count 134
APTT 40.2 H 95.3 H Pending
Sodium 139
Potassium 4.0
Chloride 107
Carbon Dioxide 20 L
BUN 27 H
Creatinine 0.8
Glucose 93
Calcium 9.3
Vital Signs:
Vital Signs
Temp Pulse Resp BP Pulse Ox
98.9 F 101 28 167/67 98
05/25/24 07:15 05/25/24 10:00 05/25/24 10:00 05/25/24 10:00 05/25/24 10:00
I&O
05/24/24 05/25/24 05/26/24
06:59 06:59 06:59
Intake Total 290 / 290
Balance 290 / 290
Physical Exam
-
General: Well Developed and No Apparent Distress
HEENT: Normocephalic, Atraumatic and Moist Mucous Membranes
Respiratory: Rales
Cardiac: S1/S2; Negative Murmur, Rub or Gallop
GI: Soft, Nontender, Nondistended and Normal Bowel Sounds; Negative Organomegaly
Rectal: Deferred by Provider
Musculoskeletal: No Clubbing, No Cyanosis and No Edema
Skin: Negative Rash
Neuro: Awake, No Motor Deficits and Nonfocal/Grossly Intact
Psych: Calm
[2024-05-25 10:58] LABS: Glucose - Point of Care 107 mg/dl (70-99)
--- NOTE | 2024-05-25 11:36 | PN.DE.MGMTRT ---
Insulin Management
- -
05/25/2024 Diabetes Management Consult
Patient admitted 05/24 with SOB, and nausea. PMH HTN, type 1 diabetes, afib. Prior to admission was using the Omni Pod Dash loop with DexCom G7 and Novolog insulin. Patient is followed by Kyle Madrid at [facility]. Pump settings as
follows:
Basal Carb ratio Sensitivity
12am .7 9 32
2am .45 9 32
6am 1.1 9 32
7am .5 9 32
8:30AM .5 8 32
11:30AM .7 8 32
12PM .7 9 32
1PM .45 9 32
8PM .75 9 32
9:30PM .75 10 32
24 HOUR BASAL TOTAL 13.75
Patient is awake alert and oriented oob in chair able to manage pump without difficulty. Fasting glucose this AM 93, will make no change to pump settings. Pump bedside worksheet at bedside.
Diabetes History
- -
Type of Diabetes: 1
Pre-Admission Diabetes Regimen
05/24/24 05/25/24
20:34 04:49
Creatinine 0.8 0.8
Insulin Pump Settings
IP Diabetes Regimen
05/24/24 05/25/24 05/25/24
20:34 04:49 07:56
Glucose 119 H 93
POC Glucose 103 H
05/25/24
10:46
Glucose
POC Glucose 107 H
Patient Education
[2024-05-25] MEDS: LASIX 40 MG IV ×2 (11:45→17:35)
[2024-05-25 11:48] LABS: APTT 68.9 Sec (23.4-35.0)
[2024-05-25] MEDS: PT'S OWN INSULIN PUMP - NovoLOG 1.5 UNIT SC (12:03)
[2024-05-25] MEDS: VANCOCIN 200 IV (12:03)
[2024-05-25] MEDS: ELIQUIS 5 MG PO ×2 (12:03→21:33)
[2024-05-25 12:07] LABS: NT-proBNP 2780 pg/ml; Troponin I 0.999 ng/ml
[2024-05-25 12:18] LABS: Procalcitonin 0.14 ng/ml (0.0-0.25)
[2024-05-25] MEDS: TYLENOL 650 MG PO (12:52)
--- NOTE | 2024-05-25 16:46 | CM ---
Patient with Hx DM, recent cardiac ablation with Dx PNA, Elevated troponin & PAF. O2 4L. Receiving IV Abx, IV Lasix. PT recommends HH.
Met with patient who resides with in a .
The patient has been independent in ADLs and ambulation.
DME - Insulin pump, Dexcom Continuous Glucose Monitor
No prior VN or SNF.
PCP - Anette Jalloh
Pharmacy - [facility] in [facility]
Offered VN for PT and patient wants to wait and discuss which agency with her daughter who works in .
Plan follow up for VN preference.
Plan home with VN.
--- NOTE | 2024-05-25 16:55 | CM ---
Patient with Hx DM, recent cardiac ablation with Dx PNA, Elevated troponin & PAF. O2 4L. Receiving IV Abx, IV Lasix. PT recommends HH.
Met with patient who resides alone in a 3rd floor condo with elevator, at [place] [address].
The patient has been independent in ADLs and ambulation.
She is active and drives.
DME - Insulin pump, Dexcom Continuous Glucose Monitor
No prior VN or SNF.
PCP - Anette Jalloh
Pharmacy - [facility] in [facility]
Offered VN for PT and patient wants to wait and discuss which agency with her daughter who works in HH.
Plan follow up for VN preference.
Plan home with VN.
[2024-05-25] MEDS: STERILE WATER FOR INJECTION 10 ML IV (17:41)
[2024-05-25] MEDS: PT'S OWN INSULIN PUMP - NovoLOG 3.6 UNIT SC (17:42)
[2024-05-25] MEDS: ROCEPHIN 1000 MG IV (17:42)
[2024-05-25] MEDS: ZOSYN IV (18:20)
[2024-05-25] MEDS: PT'S OWN INSULIN PUMP - NovoLOG 2.3 UNIT SC (18:30)
--- NOTE | 2024-05-25 18:40 | PTCARENOTE ---
Received this am JAQUEZ/Rest- O2 4L NC. IV Heparin gtt infusing. ECHO and labs completed. SR/ST on tele.
IV Lasix administered- 1950ml output this shift. Dyspnea much improved. IV Heparin gtt d/cd today, eliquis given.
OOB most of the day- now able to ambulate into the bathroom. Rings appropriately. Family/pt updated.
[2024-05-25 18:49] LABS: Glucose - Point of Care 129 mg/dl (70-99)
--- NOTE | 2024-05-25 20:00 | PTCARENOTE ---
Received pt from previous shift. Assessment performed, see flowsheets. Assisted pt in changing CGM site to L abdomen. Pt sitting up in chair with a visitor at bedside. No new complaints at this time. On 4L NC. NSR on heart monitor. Will continue to
monitor.
[2024-05-25] MEDS: COZAAR 25 MG PO (21:33)
[2024-05-25 21:37] LABS: Glucose - Point of Care 138 mg/dl (70-99)
[2024-05-26] VITALS (10 sets, daily range): BP systolic 90–136; BP diastolic 36–55; BMI 23.4
[2024-05-26] MEDS: PT'S OWN INSULIN PUMP - NovoLOG SC ×2 (00:22→08:20)
[2024-05-26 00:40] LABS: Glucose - Point of Care 82 mg/dl (70-99)
[2024-05-26 04:15] LABS: % Basophils 0.5 % (0-2); % Eosinophils 2.3 % (0-6); % Immature Granulocytes 0.3 % (0-0.5); % Lymphocytes 16.9 % (20.5-51.1); % Monocytes 11.1 % (1.7-9.3); % Neutrophils 68.9 % (42.2-75.2); Absolute Eosinophils 0.1 10^3/uL (0-0.7); Absolute Monocytes 0.6 10^3/uL (0.1-0.6); Hemoglobin 8.4 g/dL (12.0-16.0); Mean Corpuscular Hgb 32.1 pg (27.0-31.0); Mean Corpuscular Volume 91.6 fL (81.0-99.0); Mean Platelet Volume 12.4 fL (7.4-10.4); Nucleated Red Blood Cells % 0 %; Platelet Count 156 10^3/uL (130-400); Red Blood Cell Count 2.62 10^6/uL (4.20-5.40); Red Cell Dist. Width 13.4 % (11.5-14.5); White Blood Cell Count 5.8 10^3/uL (4.8-10.8)
[2024-05-26 04:38] LABS: Blood Urea Nitrogen 23 mg/dl (7-17); Carbon Dioxide 31 mmol/L (22-30); Chloride 102 mmol/L (98-107); Estimated Creatinine Clearance 41 ml/min; Glucose 93 mg/dl (70-99); Potassium 3.1 mmol/L (3.5-5.1); Sodium 140 mmol/L (135-145); eGFR > 60.00
[2024-05-26] MEDS: KCL 40 MEQ PO (04:57)
[2024-05-26] MEDS: VANCOCIN 200 IV (04:57)
[2024-05-26 05:43] LABS: Folate > 20.0 ng/ml (2.76-20); Vitamin B12 607 pg/ml (239-931)
[2024-05-26 07:46] LABS: Glucose - Point of Care 93 mg/dl (70-99)
--- NOTE | 2024-05-26 08:57 | W.PN.CARDCBS ---
Today's Communication / Plan
-
Continue Lasix 40 mg IV twice daily. Wean oxygen.
If oxygen is weaned off will be reasonable to discharge on Lasix 40 mg p.o. daily. Will replete potassium.
She remains in sinus rhythm. Continue Eliquis and diltiazem.
Abnormal troponin is from ablation.
Impression / Plan
-
Primary Merry Go Round Attendant: Dr. JOEL Wallace
Primary EP: Dr. Santana of [facility]
Assessment:
Presentation with SOB
Acute HFpEF
PNA
Elevated troponin, suspected nonischemic myocardial injury secondary to recent ablation
Acute on chronic anemia, suspected post procedure
Symptomatic, paroxysmal atrial fibrillation
Status post ablation at [facility] 05/22/2024, Dr. Santana
Chronic anticoagulation with Eliquis
Type 1 diabetes
Hypertension
History of orthostatic hypotension
Frequent UTIs
Recently diagnosed mild obstructive sleep apnea 01/2024
ECHO 12/15/23: EF 60%, mild MR, mild TR, PAP 35 mmHg
Plan:
-Improving status post IV Lasix. Weight is down and breathing is improved. Wean oxygen. Remains in sinus rhythm.
-I suspect her symptoms are more from congestive heart failure than pneumonia. But okay to continue antibiotics.
-Noted to have prior allergy/intolerance to sulfa with reaction of 'skin peeling'. On discussion with patient she reports it was 40 years ago and 'significant' but did not require hospitalization and does not recall diagnosis of SJS. Discussed
with pharmacy, low degree of cross-reactivity. will trial on IV lasix.
-Continue supplemental oxygen, wean as able
-Check echo
-remains in SR. she did have brief episode of afib requiring flecainide at home 05/23 PM. follow on tele. continue diltiazem
-continue asa. would transition IV heparin back to OP eliquis. follow hgb, 8.9 on 05/25. B/L groin sites soft, NTTP
-Elevated troponin likely secondary to recent ablation. No chest pain. EKG without acute ischemic change. managing as nonischemic myocardial injury
-d/w hospitalist
-d/w nursing
Progress Note - Merry Go Round Attendant
Subjective
Date of Service: May 26, 2024
Feeling better and breathing is improved.
Objective
Labs:
05/26/24 03:57
05/26/24 03:57
Labs
Hgb 8.4 g/dL (12.0-16.0) L 05/26/24 03:57
Hct 24.0 % (37.0-47.0) L 05/26/24 03:57
Plt Count 156 10^3/uL (130-400) 05/26/24 03:57
APTT 68.9 Sec (23.4-35.0) H 05/25/24 11:18
Sodium 140 mmol/L (135-145) 05/26/24 03:57
Potassium 3.1 mmol/L (3.5-5.1) L 05/26/24 03:57
BUN 23 mg/dl (7-17) H 05/26/24 03:57
Creatinine 0.9 mg/dL (0.6-1.0) 05/26/24 03:57
Glucose 93 mg/dl (70-99) 05/26/24 03:57
Troponins
05/24/24 05/24/24 05/25/24
20:34 23:40 04:49
Troponin I 1.630 H* 1.570 H* 1.210 H*
05/25/24 05/25/24
07:31 11:18
Troponin I Cancelled 0.999 H*
Vital Signs and I&O:
Vital Signs
Temp Pulse Resp BP Pulse Ox
99.3 F 83 26 128/53 99
05/26/24 07:20 05/26/24 06:00 05/26/24 06:00 05/26/24 06:00 05/26/24 06:00
Vital Signs
Temp Pulse Resp BP Pulse Ox
99.3 F 83 26 128/53 99
05/26/24 07:20 05/26/24 06:00 05/26/24 06:00 05/26/24 06:00 05/26/24 06:00
Intake & Output
05/24/24 05/25/24 05/26/24 05/27/24
06:59 06:59 06:59 06:59
Intake Total 290 / 290 80 / 80 200 / 200
Output Total 3350 / 3350
Balance 290 / 290 -3270 / -3270 200 / 200
Physical Exam
Physical Exam
GEN: No distress, awake, Ox3
HEENT: supple, anicteric, mmm
LUNGS: scatt rhonchi
CV: Reg, S1/S2, 1/6 syst LSB, no gallop
ABD: soft, BS+, NT/ND
EXT: No edema
NEURO: Gross non-focal
SKIN: No rash
--- NOTE | 2024-05-26 09:08 | PHA.VAN.FU ---
Vancomycin Assessment / Plan
- Assessment
Renal Function: SCR Increasing (0.8>0.9)
WBC's are: Trending Down (7.4>5.8)
In the past 24 hrs, patient has been: Afebrile
Concomitant Antimicrobials: Ceftriaxone
- Dosing Plan
Continue: Vancomycin 1000mg IV daily
- Monitoring Plan
No level(s) ordered at this time: Will order levels according to vancomycin dosing protocol
- Follow Up
Pharmacy will continue to follow.
Vancomycin Follow UP
- -
Patient Age: 83
Patient Sex: Female
Vancomycin Day #: 2
Indication: Pulmonary/Respiratory
Requesting Provider: Dr. Delcid
Pertinent Antimicrobial Allergies:
sulfonamide antibiotics - skin peels
Height / Weight:
Height 5 ft 4 in
Actual Weight 61.9 kg
Pertinent Past Medical History: DM II
- Vital Signs / Lab Results
Temp Pulse Resp BP Pulse Ox
99.3 F 83 26 128/53 99
05/26/24 07:20 05/26/24 06:00 05/26/24 06:00 05/26/24 06:00 05/26/24 06:00
Lab Results - Hematology
05/24/24 05/24/24 05/25/24
20:34 22:04 04:49
WBC 7.7 7.2 7.4
05/26/24
03:57
WBC 5.8
Lab Results - Chemistry
05/24/24 05/25/24 05/26/24
20:34 04:49 03:57
BUN 29 H 27 H 23 H
Creatinine 0.8 0.8 0.9
Estimated Creat Clear 46 46 41
Albumin 3.5
05/24/24
20:35
Lactic Acid 0.9
Microbiology Results
05/24/24 20:55 Blood Culture - Preliminary
Blood/Venous No Growth in 24 hours- Final report to follow
05/24/24 20:55 Blood Culture - Preliminary
Blood/Venous No Growth in 24 hours- Final report to follow
05/25/24 04:49 Nasal Screen MRSA (PCR) - Final
Nose Staph aureus MRSA
05/24/24 20:35 Influenza Types A & B (MI[facility]) - Final
Nasal Swab Negative for Influenza A & B, NAAT
Negative results must be combined with clinical observations
and patient history.
Nucleic Acid Amplification test (NAAT)performed on the
[employer] platform.
[2024-05-26] MEDS: LOW STRENGTH ASPIRIN 81 MG PO (09:17)
[2024-05-26] MEDS: PROTONIX 40 MG PO (09:17)
[2024-05-26] MEDS: ELIQUIS 5 MG PO ×2 (09:17→21:36)
[2024-05-26] MEDS: CARDIZEM CD 120 MG PO ×2 (09:17→21:36)
[2024-05-26] MEDS: VITAMIN C PO ×2 (09:17→09:24)
[2024-05-26] MEDS: LASIX 40 MG IV ×2 (09:17→16:12)
--- NOTE | 2024-05-26 09:49 | W.PN.HOSP.TC ---
Today's Communication/Plan
-
IV lasix
IV abx
BC
Wean o2
Assessment / Plan
Assessment / Plan
IMPRESSION:
83-year-old female with history of atrial fibrillation with 2 days status post ablation presenting with worsening shortness of breath, fever, fatigue, hypoxia requiring supplemental oxygen, found to have right-sided infiltrates on x-ray and elevated
troponin of 1.6.
PLAN:
Acute hypoxic respiratory insufficiency likely secondary to pulmonary edema likely secondary to acute HFpEF
-Chest x-ray noted with pulmonary edema
-proBNP 2780
-Echo EF of 64%. Stage II diastolic dysfunction. Dilated right atrium. Mild MR. Mild to moderate TR. PASP 40-45%.
-IV Lasix 40 mg twice daily started by cardiology. Trend creatinine. Good urinary output.
Suspected pleural effusion
-Ultrasound chest ordered and pending.
PNA - Right lower lobe / multifocal pna with fever, hypoxia and non-productive cough. This occured s/p ablation for which she was intubated and extubated c/w procedure related vs aspiration pneumonia. Negative COVID testing.
- sputum culture if available
-Pro-Ross at 0.0.14. Antibiotics ceftriaxone and Vanco continued for now
- supportive care with incentive spirometry, o2, antitussives and antiemetics
Elevated troponin - 2 days s/p ablation procedure. Trop 1.6. No chest pain. No ischemia on ECG (non-specific ST changes). Demand ischemia given hypoxemia with secondary trop elevation from ablation.
- give aspirin 324 mg x 1
- DC heparin drip continue Eliquis
- troponin down trended.
- echo echo as above
- cardiology consult.
paroxysmal atrial fibrillation s/p ablation
- continue diltiazem 120 mg bid
- Cont apixaban
DM II
- patient own pump
- accuchecks achs
Anemia -
- No h/o gi bleed. Heme negative brown stool in ED. MCV unchanged.
- trend hemoglobin for now
- appropriate iron stores and b12/folate
- Transfuse prn <7 hgb.
- OP heme eval
DVT PPX - Eliquis
Code Status - full code
tx out IMU
Anticipated Discharge: > 48 hours
Subjective/Interval History
-
Date of Service: May 26, 2024
states improvement in breathing and cough
Objective Data
-
Labs:
Laboratory Results
05/26/24
03:57
WBC 5.8
Hgb 8.4 L
Hct 24.0 L
Plt Count 156
Sodium 140
Potassium 3.1 L
Chloride 102
Carbon Dioxide 31 H
BUN 23 H
Creatinine 0.9
Glucose 93
Calcium 9.0
Vital Signs:
Vital Signs
Temp Pulse Resp BP Pulse Ox
99.3 F 83 26 128/53 99
05/26/24 07:20 05/26/24 06:00 05/26/24 06:00 05/26/24 06:00 05/26/24 06:00
I&O
05/25/24 05/26/24 05/27/24
06:59 06:59 06:59
Intake Total 290 / 290 80 / 80 200 / 200
Output Total 3350 / 3350
Balance 290 / 290 -3270 / -3270 200 / 200
Physical Exam
-
General: Well Developed and No Apparent Distress
HEENT: Normocephalic, Atraumatic and Moist Mucous Membranes
Respiratory: Rales and Decreased Breath Sounds
Cardiac: Regular Rhythm and S1/S2; Negative Murmur, Rub or Gallop
GI: Soft, Nontender, Nondistended and Normal Bowel Sounds; Negative Organomegaly
Rectal: Deferred by Provider
Musculoskeletal: No Clubbing, No Cyanosis and No Edema
Skin: Negative Rash
Neuro: Awake, Alert, No Motor Deficits and Nonfocal/Grossly Intact
Psych: Calm
Data Reviewed
-
Total Time Spent with Patient (in minutes): 56
[2024-05-26] MEDS: DUONEB 3 ML INH (10:26)
--- NOTE | 2024-05-26 10:40 | PTCARENOTE ---
Assumed care of patient at beginning of this shift from previous RN. Order entered by Dr Bell for 40meq Kdur; patient also received same dose at 04:57 this morning. Reviewed with Dr Bell who instructed to cancel order.
Patient has own insulin pump with continuous glucometer monitor. Accu check this morning was 93, however patient's glucometer read 72 and did not use a bolus at breakfast. Received patient with O2 4l n/c in use and POx 98-99%; able to wean to 2L n/c
with POx 98%. Attempted RA but POx 88-90%. Remains SR on monitor. OOB to chair and 1 assist to BR. Downgraded to telemetry by Dr Reynolds. See worklist for full assessment and vital signs; see MAR for med administration.
[2024-05-26 11:57] LABS: Glucose - Point of Care 117 mg/dl (70-99)
[2024-05-26] MEDS: PT'S OWN INSULIN PUMP - NovoLOG 4.15 UNIT SC (13:02)
[2024-05-26] MEDS: TYLENOL 650 MG PO ×2 (14:51→21:37)
--- NOTE | 2024-05-26 14:57 | PTCARENOTE ---
Patient transferred to [facility] by FAITH Melara via wheelchair; report given to Angel. Family accompanied with belongings.
[2024-05-26] MEDS: ROCEPHIN 1000 MG IV (16:12)
[2024-05-26] MEDS: STERILE WATER FOR INJECTION 10 ML IV (16:13)
[2024-05-26 17:57] LABS: Glucose - Point of Care 107 mg/dl (70-99)
[2024-05-26] MEDS: PT'S OWN INSULIN PUMP - NovoLOG 4.6 UNIT SC (18:11)
[2024-05-26] MEDS: DUONEB INH (20:31)
[2024-05-26 21:35] LABS: Glucose - Point of Care 74 mg/dl (70-99)
[2024-05-26] MEDS: COZAAR 25 MG PO (21:36)
[2024-05-26] MEDS: PT'S OWN INSULIN PUMP - NovoLOG 2.95 UNIT SC (21:40)
[2024-05-27 03:45] VITALS: BP 118/52
[2024-05-27] MEDS: VANCOCIN 200 IV (05:38)
[2024-05-27 06:18] VITALS: BMI 23.6
[2024-05-27] MEDS: DUONEB 3 ML INH ×2 (07:03→20:10)
[2024-05-27 07:25] LABS: % Eosinophils 4.5 % (0-6); % Immature Granulocytes 0.2 % (0-0.5); % Lymphocytes 26.1 % (20.5-51.1); % Monocytes 12.4 % (1.7-9.3); % Neutrophils 55.8 % (42.2-75.2); Absolute Eosinophils 0.2 10^3/uL (0-0.7); Absolute Lymphocytes 1.1 10^3/uL (1.2-3.4); Absolute Monocytes 0.5 10^3/uL (0.1-0.6); Absolute Neutrophils 2.3 10^3/uL (1.4-6.5); Hematocrit 25.3 % (37.0-47.0); Hemoglobin 8.6 g/dL (12.0-16.0); Mean Corpuscular Hgb 32.2 pg (27.0-31.0); Mean Corpuscular Volume 94.8 fL (81.0-99.0); Mean Platelet Volume 12.3 fL (7.4-10.4); Nucleated Red Blood Cells % 0 %; Platelet Count 174 10^3/uL (130-400); Red Blood Cell Count 2.67 10^6/uL (4.20-5.40); Red Cell Dist. Width 13.5 % (11.5-14.5); White Blood Cell Count 4.2 10^3/uL (4.8-10.8)
[2024-05-27 07:50] VITALS: BP 128/56
[2024-05-27 07:50] LABS: Glucose - Point of Care 113 mg/dl (70-99)
[2024-05-27 08:00] LABS: Blood Urea Nitrogen 31 mg/dl (7-17); Carbon Dioxide 30 mmol/L (22-30); Chloride 100 mmol/L (98-107); Estimated Creatinine Clearance 26 ml/min; Glucose 138 mg/dl (70-99); Potassium 3.3 mmol/L (3.5-5.1); Sodium 138 mmol/L (135-145); eGFR 37.33
[2024-05-27] MEDS: VITAMIN C 500 MG PO (08:22)
[2024-05-27] MEDS: CARDIZEM CD 120 MG PO ×2 (08:22→19:37)
[2024-05-27] MEDS: PROTONIX 40 MG PO (08:23)
[2024-05-27] MEDS: ELIQUIS 5 MG PO ×2 (08:23→19:37)
[2024-05-27] MEDS: LOW STRENGTH ASPIRIN 81 MG PO (08:23)
[2024-05-27] MEDS: LASIX 40 MG IV (08:23)
[2024-05-27] MEDS: PT'S OWN INSULIN PUMP - NovoLOG 4.1 UNIT SC (08:25)
[2024-05-27] MEDS: TYLENOL 650 MG PO (08:29)
--- NOTE | 2024-05-27 09:26 | W.PN.CARDCBS ---
Today's Communication / Plan
-
Wt is flat but cr rising to 1.4. Hold Lasix and monitor cr.
Resume lasix at PO dosing 40 mg daily if cr improves next 24 hrs
Echo reviewed, EF is preserved.
HF teaching, discussed daily wts.
Remains in sinus s/p PVI [facility] May 22 2024.
Transitioned back to Eliqu. Not clear that she also still needs ASA but listed as outpt med
H/H stable
Treated for PNA as well by primary service
Cont medical therapy of nonMI trop elevation, likely secondary to recent ablation.
Impression / Plan
-
.
Primary Plumber And Tinner: Dr. JOEL Wallace
Primary EP: Dr. Santana of [place]
Impression:
Presentation with SOB
Acute HFpEF
PNA
Elevated troponin, suspected nonischemic myocardial injury secondary to recent ablation
Acute on chronic anemia, suspected post procedure
Hx Symptomatic, paroxysmal atrial fibrillation
Status post ablation at [facility] 05/22/2024, Dr. Santana
Chronic anticoagulation with Eliquis
Type 1 diabetes
Hypertension
History of orthostatic hypotension
Frequent UTIs
Recently diagnosed mild obstructive sleep apnea 01/2024
ECHO 12/15/23: EF 60%, mild MR, mild TR, PAP 35 mmHg
Echo May 25 2024: EF 54% with mild LVH and mild MR and mild to mod TR PASP 40-45mmHg
Plan:
Wt is flat but cr rising to 1.4. Hold Lasix and monitor cr.
Resume lasix at PO dosing 40 mg daily if cr improves next 24 hrs
Echo reviewed, EF is preserved.
HF teaching, discussed daily wts.
Remains in sinus s/p PVI [facility] May 22 2024.
Transitioned back to Eliqu. Not clear that she also still needs ASA but listed as outpt med
H/H stable
Treated for PNA as well by primary service
Cont medical therapy of nonMI trop elevation, likely secondary to recent ablation.
Progress Note - Plumber And Tinner
Subjective
Date of Service: May 27, 2024
Pt seen and examined. . No chest pain. Breathing is improved.
Objective
Labs:
05/27/24 06:19
05/27/24 06:19
Labs
Hgb 8.6 g/dL (12.0-16.0) L 05/27/24 06:19
Hct 25.3 % (37.0-47.0) L 05/27/24 06:19
Plt Count 174 10^3/uL (130-400) 05/27/24 06:19
APTT 68.9 Sec (23.4-35.0) H 05/25/24 11:18
Sodium 138 mmol/L (135-145) 05/27/24 06:19
Potassium 3.3 mmol/L (3.5-5.1) L 05/27/24 06:19
BUN 31 mg/dl (7-17) H 05/27/24 06:19
Creatinine 1.4 mg/dL (0.6-1.0) H 05/27/24 06:19
Glucose 138 mg/dl (70-99) H 05/27/24 06:19
Troponins
05/24/24 05/24/24 05/25/24
20:34 23:40 04:49
Troponin I 1.630 H* 1.570 H* 1.210 H*
05/25/24 05/25/24
07:31 11:18
Troponin I Cancelled 0.999 H*
Vital Signs and I&O:
Vital Signs
Temp Pulse Resp BP Pulse Ox
98.5 F 76 18 128/56 94
05/27/24 07:50 05/27/24 07:50 05/27/24 07:50 05/27/24 07:50 05/27/24 07:50
Vital Signs
Temp Pulse Resp BP Pulse Ox
98.5 F 76 18 128/56 94
05/27/24 07:50 05/27/24 07:50 05/27/24 07:50 05/27/24 07:50 05/27/24 07:50
Intake & Output
05/25/24 05/26/24 05/27/24 05/28/24
06:59 06:59 06:59 06:59
Intake Total 290 / 290 80 / 80 1240 / 1240
Output Total 3350 / 3350 400 / 400
Balance 290 / 290 -3270 / -3270 840 / 840
Physical Exam
Physical Exam
General: No acute distress, AAOX3
Neck: Negative JVD
Heart: Regular, Negative S3 positive S1/S2, Negative S4, No murmur
Lungs: CTA b/l, negative wheezes/rales/rhonchi
Abd: Positive BS, NT/ND, neg rebound/rigidity/guarding
Ext: Negative cyanosis/clubbing/edema
Neuro: nonfocal
[2024-05-27 11:02] VITALS: BP 114/51
[2024-05-27 12:21] LABS: Glucose - Point of Care 140 mg/dl (70-99)
--- NOTE | 2024-05-27 12:47 | W.PN.HOSP.TC ---
Today's Communication/Plan
-
hold lasix
trend cr
po doxy/rocephin
Assessment / Plan
Assessment / Plan
IMPRESSION:
83-year-old female with history of atrial fibrillation with 2 days status post ablation presenting with worsening shortness of breath, fever, fatigue, hypoxia requiring supplemental oxygen, found to have right-sided infiltrates on x-ray and elevated
troponin of 1.6.
PLAN:
Acute hypoxic respiratory insufficiency likely secondary to pulmonary edema likely secondary to acute HFpEF
-Chest x-ray noted with pulmonary edema
-proBNP 2780
-Echo EF of 64%. Stage II diastolic dysfunction. Dilated right atrium. Mild MR. Mild to moderate TR. PASP 40-45%.
-IV Lasix 40 mg twice daily started by cardiology. Significant weight loss. Bump in creatinine. Lasix held.
-Stable on room air.
Suspected pleural effusion
-Ultrasound chest ordered with small bilateral pleural effusions.
PNA - Right lower lobe / multifocal pna with fever, hypoxia and non-productive cough. This occured s/p ablation for which she was intubated and extubated c/w procedure related vs aspiration pneumonia. Negative COVID testing.
- sputum culture if available
-Pro-Ross at 0.0.14. Antibiotics ceftriaxone. DC Vanco and start Doxy.
- supportive care with incentive spirometry, o2, antitussives and antiemetics
Elevated troponin - 2 days s/p ablation procedure. Trop 1.6. No chest pain. No ischemia on ECG (non-specific ST changes). Demand ischemia given hypoxemia with secondary trop elevation from ablation.
- give aspirin 324 mg x 1
- DC heparin drip continue Eliquis
- troponin down trended.
- echo as above
- cardiology consult.
paroxysmal atrial fibrillation s/p ablation
- continue diltiazem 120 mg bid
- Cont apixaban
DM II
- patient own pump
- accuchecks achs
Anemia -
- No h/o gi bleed. Heme negative brown stool in ED. MCV unchanged.
- trend hemoglobin for now
- appropriate iron stores and b12/folate
- Transfuse prn <7 hgb.
- OP heme eval
DVT PPX - Eliquis
Code Status - full code
[facility].
Anticipated Discharge: 24 - 48 hours
Subjective/Interval History
-
Date of Service: May 27, 2024
off oxygen
states improvement in cough.
Objective Data
-
Labs:
Laboratory Results
05/27/24
06:19
WBC 4.2 L
Hgb 8.6 L
Hct 25.3 L
Plt Count 174
Sodium 138
Potassium 3.3 L
Chloride 100
Carbon Dioxide 30
BUN 31 H
Creatinine 1.4 H
Glucose 138 H
Calcium 9.0
Vital Signs:
Vital Signs
Temp Pulse Resp BP Pulse Ox
98.1 F 75 18 114/51 91
05/27/24 11:02 05/27/24 11:02 05/27/24 11:02 05/27/24 11:02 05/27/24 11:02
I&O
05/26/24 05/27/24 05/28/24
06:59 06:59 06:59
Intake Total 80 / 80 1240 / 1240
Output Total 3350 / 3350 400 / 400
Balance -3270 / -3270 840 / 840
Physical Exam
-
General: Well Developed and No Apparent Distress
HEENT: Normocephalic, Atraumatic and Moist Mucous Membranes; Negative Oxygen
Respiratory: Clear to Auscultation and Decreased Breath Sounds
Cardiac: Regular Rhythm and S1/S2; Negative Murmur, Rub or Gallop
GI: Soft, Nontender, Nondistended and Normal Bowel Sounds; Negative Organomegaly
Rectal: Deferred by Provider
Musculoskeletal: No Clubbing, No Cyanosis and No Edema
Skin: Negative Rash
Neuro: Awake, Alert, No Motor Deficits and Nonfocal/Grossly Intact
Psych: Calm
[2024-05-27] MEDS: PT'S OWN INSULIN PUMP - NovoLOG 3.4 UNIT SC (13:31)
[2024-05-27] MEDS: ZOFRAN 4 MG IV (13:35)
[2024-05-27 15:37] VITALS: BP 119/46
[2024-05-27] MEDS: STERILE WATER FOR INJECTION 10 ML IV (15:42)
[2024-05-27] MEDS: ROCEPHIN 1000 MG IV (15:42)
[2024-05-27 17:10] LABS: Glucose - Point of Care 104 mg/dl (70-99)
[2024-05-27] MEDS: PT'S OWN INSULIN PUMP - NovoLOG 5.95 UNIT SC (18:35)
[2024-05-27 19:46] VITALS: BP 121/48
[2024-05-27] MEDS: COZAAR 25 MG PO (21:16)
[2024-05-27] MEDS: PT'S OWN INSULIN PUMP - NovoLOG 1 UNIT SC (21:22)
[2024-05-27 21:23] LABS: Glucose - Point of Care 155 mg/dl (70-99)
[2024-05-27 23:44] VITALS: BP 140/54
[2024-05-28] VITALS (7 sets, daily range): BP systolic 104–147; BP diastolic 51–65; PULSE 70; O2SAT 94; BMI 23.3
--- NOTE | 2024-05-28 06:50 | W.PN.HOSP.TC ---
Today's Communication/Plan
-
monitor renal function
Assessment / Plan
Assessment / Plan
Physical Exam
General: Well Developed and No Apparent Distress
HEENT: Normocephalic, Atraumatic and Moist Mucous Membranes; Negative Oxygen
Respiratory: Clear to Auscultation and Decreased Breath Sounds
Cardiac: Regular Rhythm and S1/S2; Negative Murmur, Rub or Gallop
GI: Soft, Nontender, Nondistended and Normal Bowel Sounds; Negative Organomegaly
Musculoskeletal: No Clubbing, No Cyanosis and No Edema
Skin: Negative Rash
Neuro: Awake, Alert, No Motor Deficits and Nonfocal/Grossly Intact
Psych: Calm
IMPRESSION:
83-year-old female with history of atrial fibrillation with 2 days status post ablation presenting with worsening shortness of breath, fever, fatigue, hypoxia requiring supplemental oxygen, found to have right-sided infiltrates on x-ray and elevated
troponin of 1.6.
PLAN:
Acute hypoxic respiratory insufficiency likely secondary to pulmonary edema likely secondary to acute HFpEF
-Chest x-ray noted with pulmonary edema
-proBNP 2780
-Echo EF of 64%. Stage II diastolic dysfunction. Dilated right atrium. Mild MR. Mild to moderate TR. PASP 40-45%.
-IV Lasix 40 mg twice daily started by cardiology. Significant weight loss. Bump in creatinine. Lasix held.
-Stable on room air.
Suspected pleural effusion
-Ultrasound chest ordered with small bilateral pleural effusions.
PNA - Right lower lobe / multifocal pna with fever, hypoxia and non-productive cough. This occured s/p ablation for which she was intubated and extubated c/w procedure related vs aspiration pneumonia. Negative COVID testing.
- sputum culture if available
-Pro-Ross at 0.0.14. Antibiotics ceftriaxone. DC Vanco and start Doxy.
- supportive care with incentive spirometry, o2, antitussives and antiemetics
Elevated troponin - 2 days s/p ablation procedure. Trop 1.6. No chest pain. No ischemia on ECG (non-specific ST changes). Demand ischemia given hypoxemia with secondary trop elevation from ablation.
- give aspirin 324 mg x 1
- DC heparin drip continue Eliquis
- troponin down trended.
- echo as above
- cardiology consult.
paroxysmal atrial fibrillation s/p ablation
- continue diltiazem 120 mg bid
- Cont apixaban
DM II
- patient own pump
- accuchecks achs
Anemia -
- No h/o gi bleed. Heme negative brown stool in ED. MCV unchanged.
- trend hemoglobin for now
- appropriate iron stores and b12/folate
- Transfuse prn <7 hgb.
- OP heme eval
DVT PPX - Eliquis
Code Status - full code
[employer].
discussed with patient and patient's son Chong santiago
I spent a total of 40 minutes with the patient or on the floor. More than 50% of this time involved counseling and coordination of care.
Anticipated Discharge: Within 24 hours
Subjective/Interval History
-
Date of Service: May 28, 2024
No acute distress. Reports feeling well.
Objective Data
-
Labs:
Laboratory Results
05/28/24
06:00
WBC Pending
Hgb Pending
Hct Pending
Plt Count Pending
Sodium Pending
Potassium Pending
Chloride Pending
Carbon Dioxide Pending
BUN Pending
Creatinine Pending
Glucose Pending
Calcium Pending
Vital Signs:
Vital Signs
Temp Pulse Resp BP Pulse Ox
98.8 F 82 18 120/51 92
05/28/24 03:06 05/28/24 03:06 05/28/24 03:06 05/28/24 03:06 05/28/24 03:06
I&O
05/26/24 05/27/24 05/28/24
06:59 06:59 06:59
Intake Total 80 / 80 1240 / 1240 1200 / 1200
Output Total 3350 / 3350 400 / 400
Balance -3270 / -3270 840 / 840 1200 / 1200
[2024-05-28] MEDS: DUONEB 3 ML INH ×2 (07:21→20:34)
[2024-05-28 07:32] LABS: Glucose - Point of Care 95 mg/dl (70-99)
[2024-05-28] MEDS: PT'S OWN INSULIN PUMP - NovoLOG 6.45 UNIT SC (08:00)
--- NOTE | 2024-05-28 09:23 | W.PN.CARDCBS ---
Impression / Plan
-
.
Primary Assembler Carbon Brushes: Dr. JOEL Wallace
Primary EP: Dr. Santana of [place]
Impression:
presentation with SOB
Acute HFpEF, 2780
PNA
Elevated troponin, suspected nonischemic myocardial injury secondary to recent ablation
Acute on chronic anemia, suspected post procedure
Hx Symptomatic, paroxysmal atrial fibrillation
Status post ablation at [place] 05/22/2024, Dr. Santana
Chronic anticoagulation with Eliquis
Type 1 diabetes
Hypertension
History of orthostatic hypotension
Frequent UTIs
Recently diagnosed mild obstructive sleep apnea 01/2024
ECHO 12/15/23: EF 60%, mild MR, mild TR, PAP 35 mmHg
Echo May 25 2024: EF 54% with mild LVH and mild MR and mild to mod TR PASP 40-45mmHg
Plan:
Presented 05/24/2024 with shortness of breath and found to be in acute on chronic heart failure with preserved ejection fraction
Good response to diuresis. Weight down at least 10 pounds since admission.
Creat bumped from 0.8 to 1.4 on May 27 so lasix on hold. Repeat BMP pending
Cr pending. Resume lasix at PO dosing 40 mg daily if cr improves next 24 hrs
Echo reviewed, EF is preserved.
HF teaching, discussed daily wts.
Remains in sinus s/p PVI [place] May 22 2024.
Transitioned back to Eliquis.
Not clear that she also still needs ASA but listed as outpt med
H/H stable
Treated for PNA as well by primary service
Cont medical therapy of nonMI trop elevation, likely secondary to recent ablation.
Outpt cardiac follow up
Progress Note - Assembler [employer] Brushes
Subjective
Date of Service: May 28, 2024
Objective
Labs:
Labs
Hgb 8.6 g/dL (12.0-16.0) L 05/27/24 06:19
Hct 25.3 % (37.0-47.0) L 05/27/24 06:19
Plt Count 174 10^3/uL (130-400) 05/27/24 06:19
APTT 68.9 Sec (23.4-35.0) H 05/25/24 11:18
Sodium 138 mmol/L (135-145) 05/27/24 06:19
Potassium 3.3 mmol/L (3.5-5.1) L 05/27/24 06:19
BUN 31 mg/dl (7-17) H 05/27/24 06:19
Creatinine 1.4 mg/dL (0.6-1.0) H 05/27/24 06:19
Glucose 138 mg/dl (70-99) H 05/27/24 06:19
Troponins
05/25/24
11:18
Troponin I 0.999 H*
Vital Signs and I&O:
Vital Signs
Temp Pulse Resp BP Pulse Ox
98.3 F 75 14 117/55 93
05/28/24 07:00 05/28/24 07:22 05/28/24 07:22 05/28/24 07:00 05/28/24 07:22
Vital Signs
Temp Pulse Resp BP Pulse Ox
98.3 F 75 14 117/55 93
05/28/24 07:00 05/28/24 07:22 05/28/24 07:22 05/28/24 07:00 05/28/24 07:22
Intake & Output
05/26/24 05/27/24 05/28/24 05/29/24
06:59 06:59 06:59 06:59
Intake Total 80 / 80 1240 / 1240 1200 / 1200
Output Total 3350 / 3350 400 / 400
Balance -3270 / -3270 840 / 840 1200 / 1200
[2024-05-28 09:47] LABS: % Basophils 0.9 % (0-2); % Eosinophils 3.8 % (0-6); % Immature Granulocytes 0.5 % (0-0.5); % Lymphocytes 21.9 % (20.5-51.1); % Monocytes 10.1 % (1.7-9.3); % Neutrophils 62.8 % (42.2-75.2); Absolute Eosinophils 0.2 10^3/uL (0-0.7); Absolute Lymphocytes 0.9 10^3/uL (1.2-3.4); Absolute Monocytes 0.4 10^3/uL (0.1-0.6); Absolute Neutrophils 2.7 10^3/uL (1.4-6.5); Hematocrit 26.4 % (37.0-47.0); Hemoglobin 8.8 g/dL (12.0-16.0); Mean Corp Hgb Conc. 33.3 g/dL (33.0-37.0); Mean Corpuscular Hgb 32.1 pg (27.0-31.0); Mean Corpuscular Volume 96.4 fL (81.0-99.0); Mean Platelet Volume 11.9 fL (7.4-10.4); Nucleated Red Blood Cells % 0 %; Platelet Count 217 10^3/uL (130-400); Red Blood Cell Count 2.74 10^6/uL (4.20-5.40); Red Cell Dist. Width 13.8 % (11.5-14.5); White Blood Cell Count 4.2 10^3/uL (4.8-10.8)
[2024-05-28 09:55] LABS: Blood Urea Nitrogen 37 mg/dl (7-17); Calcium 9.4 mg/dl (8.4-10.2); Carbon Dioxide 30 mmol/L (22-30); Chloride 100 mmol/L (98-107); Estimated Creatinine Clearance 25 ml/min; Glucose 199 mg/dl (70-99); Potassium 3.7 mmol/L (3.5-5.1); Sodium 141 mmol/L (135-145); eGFR 34.36
[2024-05-28] MEDS: LOW STRENGTH ASPIRIN 81 MG PO (10:50)
[2024-05-28] MEDS: PROTONIX 40 MG PO (10:50)
[2024-05-28] MEDS: ELIQUIS 5 MG PO ×2 (10:50→19:39)
[2024-05-28] MEDS: VITAMIN C PO ×2 (10:50→11:42)
[2024-05-28] MEDS: VIBRAMYCIN 100 MG PO ×2 (10:50→19:39)
[2024-05-28] MEDS: CARDIZEM CD 120 MG PO ×2 (10:54→19:39)
[2024-05-28 11:58] LABS: Glucose - Point of Care 137 mg/dl (70-99)
--- NOTE | 2024-05-28 12:01 | VNURNOTE ---
Home Health Liaison met with patient at [facility] to discuss [facility] nurse/therapy, visits, schedule and homebound status. Patient is agreeable and understands that visits at home will be 2-3 x per week to assess and teach medical management. [facility]
brochure provided with contact information. Patient is aware that [facility] will contact them for start of care in 1-2 days after discharge from .
[facility] referral completed in [facility].
--- NOTE | 2024-05-28 12:16 | W.PN.CARDCBS ---
Today's Communication / Plan
-
Hold lasix and losartan
Monitor cr
Hopefully resume oral lasix am
Impression / Plan
-
Primary Deposit Refund Clerk: Dr. JOEL Wallace
Primary EP: Dr. Santana of [place]
Impression:
Presentation with SOB
Acute HFpEF
PNA
Elevated troponin, suspected nonischemic myocardial injury secondary to recent ablation
Acute on chronic anemia, suspected post procedure
Hx Symptomatic, paroxysmal atrial fibrillation
Status post ablation at [place] 05/22/2024, Dr. Santana
Chronic anticoagulation with Eliquis
Type 1 diabetes
Hypertension
History of orthostatic hypotension
Frequent UTIs
Recently diagnosed mild obstructive sleep apnea 01/2024
ECHO 12/15/23: EF 60%, mild MR, mild TR, PAP 35 mmHg
Echo May 25 2024: EF 54% with mild LVH and mild MR and mild to mod TR PASP 40-45mmHg
Plan:
Wt is down and cr still rising. Cont to hold Lasix and monitor cr.
Hold PM Losartan
Possibly resume lasix at PO dosing 40 mg daily if cr improves next 24 hrs
Echo reviewed, EF is preserved.
HF teaching, discussed daily wts.
Remains in sinus s/p PVI [place] May 22 2024.
Transitioned back to Eliquis. Not clear that she also still needs ASA but listed as outpt med
H/H remains stable.
Treated for PNA as well by primary service
Cont medical therapy of nonMI trop elevation, likely secondary to recent ablation.
Outpt cardiac follow up
Progress Note - Deposit Refund Clerk
Subjective
Date of Service: May 28, 2024
Pt seen and examined. No complaints. No chest pain or shortness of breath.
Objective
Labs:
05/28/24 09:19
05/28/24 09:19
Labs
Hgb 8.8 g/dL (12.0-16.0) L 05/28/24 09:19
Hct 26.4 % (37.0-47.0) L 05/28/24 09:19
Plt Count 217 10^3/uL (130-400) D 05/28/24 09:19
APTT 68.9 Sec (23.4-35.0) H 05/25/24 11:18
Sodium 141 mmol/L (135-145) 05/28/24 09:19
Potassium 3.7 mmol/L (3.5-5.1) 05/28/24 09:19
BUN 37 mg/dl (7-17) H 05/28/24 09:19
Creatinine 1.5 mg/dL (0.6-1.0) H 05/28/24 09:19
Glucose 199 mg/dl (70-99) H 05/28/24 09:19
Vital Signs and I&O:
Vital Signs
Temp Pulse Resp BP Pulse Ox
97.9 F 96 18 112/59 96
05/28/24 11:00 05/28/24 11:00 05/28/24 11:00 05/28/24 11:00 05/28/24 11:00
Vital Signs
Temp Pulse Resp BP Pulse Ox
97.9 F 96 18 112/59 96
05/28/24 11:00 05/28/24 11:00 05/28/24 11:00 05/28/24 11:00 05/28/24 11:00
Intake & Output
05/26/24 05/27/24 05/28/24 05/29/24
06:59 06:59 06:59 06:59
Intake Total 80 / 80 1240 / 1240 1200 / 1200
Output Total 3350 / 3350 400 / 400
Balance -3270 / -3270 840 / 840 1200 / 1200
Physical Exam
Physical Exam
General: No acute distress, AAOX3
Neck: Negative JVD
Heart: Regular, Negative S3 positive S1/S2, Negative S4, No murmur
Lungs: CTA b/l, negative wheezes/rales/rhonchi
Abd: Positive BS, NT/ND, neg rebound/rigidity/guarding
Ext: Negative cyanosis/clubbing/edema
Neuro: nonfocal
--- NOTE | 2024-05-28 12:21 | CM ---
Chart reviewed and top case assembler met with patient and patient is agreeable to home back to her condo with visiting nurses. Stephanie has selected [facility], [facility] liasion notified.
Plan; Home with [facility].
[2024-05-28] MEDS: PT'S OWN INSULIN PUMP - NovoLOG 5.95 UNIT SC (14:02)
[2024-05-28] MEDS: ROCEPHIN IV (16:51)
[2024-05-28] MEDS: STERILE WATER FOR INJECTION IV (16:51)
[2024-05-28 17:06] LABS: Glucose - Point of Care 130 mg/dl (70-99)
[2024-05-28] MEDS: PT'S OWN INSULIN PUMP - NovoLOG 4.95 UNIT SC (18:36)
--- NOTE | 2024-05-28 18:38 | PTCARENOTE ---
Patient reports basal rate for own insulin pump units/hr:
0000 0.7 units/hr
0200 0.45
0600 1.1
0700 0.5
1130 0.7
1300 0.45
2000 0.75
[2024-05-28 21:48] LABS: Glucose - Point of Care 135 mg/dl (70-99)
[2024-05-28] MEDS: PT'S OWN INSULIN PUMP - NovoLOG SC (22:00)
[2024-05-29 03:27] VITALS: BP 139/58
[2024-05-29 06:00] VITALS: BMI 23.4
[2024-05-29 06:40] LABS: Hematocrit 24.2 % (37.0-47.0); Hemoglobin 8.3 g/dL (12.0-16.0); Mean Corp Hgb Conc. 34.3 g/dL (33.0-37.0); Mean Corpuscular Hgb 33.7 pg (27.0-31.0); Mean Corpuscular Volume 98.4 fL (81.0-99.0); Mean Platelet Volume 12.3 fL (7.4-10.4); Platelet Count 177 10^3/uL (130-400); Red Blood Cell Count 2.46 10^6/uL (4.20-5.40); Red Cell Dist. Width 13.9 % (11.5-14.5); White Blood Cell Count 4.5 10^3/uL (4.8-10.8)
[2024-05-29 07:03] LABS: Blood Urea Nitrogen 33 mg/dl (7-17); Calcium 9.2 mg/dl (8.4-10.2); Carbon Dioxide 30 mmol/L (22-30); Chloride 103 mmol/L (98-107); Estimated Creatinine Clearance 28 ml/min; Glucose 112 mg/dl (70-99); Potassium 3.8 mmol/L (3.5-5.1); Sodium 142 mmol/L (135-145)
[2024-05-29] MEDS: DUONEB 3 ML INH (07:27)
--- NOTE | 2024-05-29 07:48 | W.PN.HOSP.TC ---
Addendum entered and electronically signed by Addy Adler MD 05/30/24 08:50:
respiratory failure present on admission since resolved
Original Note:
Today's Communication/Plan
-
discharge
Assessment / Plan
Assessment / Plan
Physical Exam
General: Well Developed and No Apparent Distress
HEENT: Normocephalic, Atraumatic and Moist Mucous Membranes; Negative Oxygen
Respiratory: Clear to Auscultation and Decreased Breath Sounds
Cardiac: Regular Rhythm and S1/S2; Negative Murmur, Rub or Gallop
GI: Soft, Nontender, Nondistended and Normal Bowel Sounds; Negative Organomegaly
Musculoskeletal: No Clubbing, No Cyanosis and No Edema
Skin: Negative Rash
Neuro: Awake, Alert, No Motor Deficits and Nonfocal/Grossly Intact
Psych: Calm
IMPRESSION:
83-year-old female with history of atrial fibrillation with 2 days status post ablation presenting with worsening shortness of breath, fever, fatigue, hypoxia requiring supplemental oxygen, found to have right-sided infiltrates on x-ray and elevated
troponin of 1.6.
PLAN:
Acute hypoxic respiratory insufficiency likely secondary to pulmonary edema likely secondary to acute HFpEF
-Chest x-ray noted with pulmonary edema
-proBNP 2780
-Echo EF of 64%. Stage II diastolic dysfunction. Dilated right atrium. Mild MR. Mild to moderate TR. PASP 40-45%.
-improved with IV Lasix 40 mg twice daily. Weaned off oxygen supplementation. Significant weight loss. Bump in creatinine. Lasix held.
-Stable on room air.
JONATHON likely due to overdiuresis, resolving
Cardio eval appreciated patient to restart Lasix PO and reduced dose 20 mg Daily, repeat BMP in 1 wk outpt
Small b/l pleural effusions noted on CXR and US
-given clinical improvement stable respiratory status room air
-follow CXR in 1 month outpt recommended.
PNA - Right lower lobe / multifocal pna with fever, hypoxia and non-productive cough. This occurred s/p ablation for which she was intubated and extubated c/w procedure related vs aspiration pneumonia. Negative COVID testing.
-Pro-Ross at 0.0.14. empiric IV Antibiotics ceftriaxone Vanco switched to oral Doxy, tolerated well, planned for total 7 days abx (05/30/04 last day)
- supportive care with incentive spirometry, o2, antitussives and antiemetics
Elevated troponin - 2 days s/p ablation procedure. Trop 1.6. No chest pain. No ischemia on ECG (non-specific ST changes). Demand ischemia given hypoxemia with secondary trop elevation from ablation.
- given aspirin 324 mg x 1
- empiric heparin drip converted back to home Eliquis
- troponin down trended.
- echo as above
- cardiology consult appreciated
paroxysmal atrial fibrillation s/p ablation
- continue Cardizem 120 mg bid
- Cont apixaban
HTN
Losartan on hold due to JONATHON and relatively low pressures (resolving)
cont Cardizem and Lasix as above
DM II
- patient own pump
- accuchecks achs
Anemia -
- No h/o gi bleed. Heme negative brown stool in ED. MCV unchanged.
- trend hemoglobin for now
- appropriate iron stores and b12/folate
- Transfuse prn <7 hgb.
- OP heme eval
DVT PPX - Eliquis
Code Status - full code
[facility].
Medically stable for discharge home with home services and outpatient follow up recommendations.
Total Time Preparing Discharge __50 minutes including examination of the patient, summary of the hospital stay, instructions for continuing care to all relevant caregivers; and preparation of discharge records, prescriptions, and referral
forms if necessary.
Anticipated Discharge: Today
Subjective/Interval History
-
Date of Service: May 29, 2024
Reports overall feeling well. Continues to endorse cough. Otherwise denies new acute issues at this time.
Objective Data
-
Labs:
Laboratory Results
05/29/24
05:46
WBC 4.5 L
Hgb 8.3 L
Hct 24.2 L
Plt Count 177
Sodium 142
Potassium 3.8
Chloride 103
Carbon Dioxide 30
BUN 33 H
Creatinine 1.3 H
Glucose 112 H
Calcium 9.2
Vital Signs:
Vital Signs
Temp Pulse Resp BP Pulse Ox
98.9 F 75 16 139/58 94
05/29/24 03:27 05/29/24 07:30 05/29/24 07:30 05/29/24 03:27 05/29/24 07:30
I&O
05/28/24 05/29/24 05/30/24
06:59 06:59 06:59
Intake Total 1200 / 1200 600 / 600
Balance 1200 / 1200 600 / 600
[2024-05-29 07:49] LABS: Glucose - Point of Care 119 mg/dl (70-99)
[2024-05-29 07:55] VITALS: BP 121/53
[2024-05-29] MEDS: PT'S OWN INSULIN PUMP - NovoLOG 4.5 UNIT SC (08:00)
--- NOTE | 2024-05-29 10:12 | CM ---
all source collection manager met with patient this am and plan remains to home at discharge with [facility].
Plan; Home with [facility].
[2024-05-29] MEDS: PROTONIX 40 MG PO (10:17)
[2024-05-29] MEDS: VITAMIN C PO (10:17)
[2024-05-29] MEDS: LOW STRENGTH ASPIRIN 81 MG PO (10:17)
[2024-05-29] MEDS: VIBRAMYCIN 100 MG PO (10:17)
[2024-05-29] MEDS: CARDIZEM CD 120 MG PO (10:17)
[2024-05-29] MEDS: ELIQUIS 5 MG PO (10:17)
[2024-05-29] MEDS: TYLENOL 650 MG PO (10:21)
--- NOTE | 2024-05-29 10:29 | W.PN.CARDCBS ---
Today's Communication / Plan
-
Wt is down and cr improved.
Cont to hold Losartan and reeval as outpt. BP controlled.
Resume low dose lasix 20 mg daily tomorrow and check BMP in one week. Cont to hold Lasix and monitor cr.
Echo reviewed, EF is preserved.
Cont HF teaching, discussed daily wts.
Remains in sinus s/p PVI [place] May 22 2024.
Transitioned back to [facility]. Not clear that she also still needs ASA but listed as outpt med
Cont medical therapy of nonMI trop elevation, likely secondary to recent ablation.
Impression / Plan
-
Primary Traveling Operator: Dr. JOEL Wallace
Primary EP: Dr. Santana of [place]
Impression:
Presentation with SOB
Acute HFpEF
PNA
Elevated troponin, suspected nonischemic myocardial injury secondary to recent ablation
Acute on chronic anemia, suspected post procedure
Hx Symptomatic, paroxysmal atrial fibrillation
Status post ablation at [place] 05/22/2024, Dr. Santana
Chronic anticoagulation with Eliquis
Type 1 diabetes
Hypertension
History of orthostatic hypotension
Frequent UTIs
Recently diagnosed mild obstructive sleep apnea 01/2024
ECHO 12/15/23: EF 60%, mild MR, mild TR, PAP 35 mmHg
Echo May 25 2024: EF 54% with mild LVH and mild MR and mild to mod TR PASP 40-45mmHg
Plan:
Wt is down and cr improved.
Cont to hold Losartan and reeval as outpt. BP controlled.
Resume low dose lasix 20 mg daily tomorrow and check BMP in one week. Cont to hold Lasix and monitor cr.
Echo reviewed, EF is preserved.
Cont HF teaching, discussed daily wts.
Remains in sinus s/p PVI [place] May 22 2024.
Transitioned back to Eliqu. Not clear that she also still needs ASA but listed as outpt med
Cont medical therapy of nonMI trop elevation, likely secondary to recent ablation.
Outpt cardiac follow up
Progress Note - Traveling Operator
Subjective
Date of Service: May 29, 2024
Pt seen and examined. No complaints. No chest pain or shortness of breath.
Objective
Labs:
05/29/24 05:46
05/29/24 05:46
Labs
Hgb 8.3 g/dL (12.0-16.0) L 05/29/24 05:46
Hct 24.2 % (37.0-47.0) L 05/29/24 05:46
Plt Count 177 10^3/uL (130-400) 05/29/24 05:46
APTT 68.9 Sec (23.4-35.0) H 05/25/24 11:18
Sodium 142 mmol/L (135-145) 05/29/24 05:46
Potassium 3.8 mmol/L (3.5-5.1) 05/29/24 05:46
BUN 33 mg/dl (7-17) H 05/29/24 05:46
Creatinine 1.3 mg/dL (0.6-1.0) H 05/29/24 05:46
Glucose 112 mg/dl (70-99) H 05/29/24 05:46
Vital Signs and I&O:
Vital Signs
Temp Pulse Resp BP Pulse Ox
99.4 F 93 18 121/53 93
05/29/24 07:55 05/29/24 07:55 05/29/24 07:55 05/29/24 07:55 05/29/24 07:55
Vital Signs
Temp Pulse Resp BP Pulse Ox
99.4 F 93 18 121/53 93
05/29/24 07:55 05/29/24 07:55 05/29/24 07:55 05/29/24 07:55 05/29/24 07:55
Intake & Output
09/29/05/28/24 05/29/24 05/30/24
06:59 06:59 06:59 06:59
Intake Total 1240 / 1240 1200 / 1200 600 / 600
Output Total 400 / 400
Balance 840 / 840 1200 / 1200 600 / 600
Physical Exam
Physical Exam
General: No acute distress, AAOX3
Neck: Negative JVD
Heart: Regular, Negative S3 positive S1/S2, Negative S4, No murmur
Lungs: CTA b/l, negative wheezes/rales/rhonchi
Abd: Positive BS, NT/ND, neg rebound/rigidity/guarding
Ext: Negative cyanosis/clubbing/edema
Neuro: nonfocal
[2024-05-29 11:19] VITALS: BP 137/58
[2024-05-29 12:30] VITALS: BP 137/58; PULSE 82
[2024-05-29 12:30] LABS: Glucose - Point of Care 109 mg/dl (70-99)
[2024-05-29] MEDS: PT'S OWN INSULIN PUMP - NovoLOG 4.9 UNIT SC (13:46)
--- NOTE | 2024-05-29 14:03 | PN.CDI ---
CDI
- -
CDI:
Physician Documentation Request
Admit Date: 05/24/24 22:29
Dear Doctor Nayely,
Please review the following and provide your response in the progress notes.
Clinical Indicators:
Pt admitted with pneumonia and acute heart failure.
05/27 Cardiology note: 'Wt is flat but cr rising to 1.4. Hold Lasix and monitor cr.'
Laboratory Tests
05/26/24 05/27/24 05/28/24
03:57 06:19 09:19
Creatinine 0.9 1.4 H 1.5 H
Clarify which of the following accurately represents the patient's renal status:
Acute kidney injury (non-traumatic) - see criteria
Insignificant abnormal lab values
Other
Criteria for JONATHON*
1 Increase in serum creatinine by > or = to 0.3 mg/dL (> or = to 26.5 micromol/L) within 48 hours, OR
2 Increase in serum creatinine to > or = to 1.5 times baseline, which is known or presumed to have occurred within 7 days, OR
3 Urine volume < 0.5 nL/kg/hour for six hours
Use of terms such as suspected, likely, concern for, or probable (associated with a specific diagnosis that is being evaluated, monitored, or treated as if it exists) are acceptable and can be coded in the inpatient setting, when documented at the
time of discharge.
Thank you,
Regla Manzo RN, BSN
CDI Specialist
Available via [place] text
Please use your independent medical judgment in providing your response.
*Source: Kidney Disease: Improving Global Outcomes (KDIGO) 2012
--- NOTE | 2024-05-29 14:16 | PN.CDI ---
CDI
- -
CDI:
Physician Documentation Request
Admit Date: 05/24/24 22:29
Dear Doctor Nayely,
Please review the following and provide your response in the progress notes.
Clinical Indicators:
Documentation in the record on 05/24/24 includes the diagnosis of respiratory failure. The patient's respiratory clinical indicators were the following:
Pt admitted with pneumonia and acute heart failure.
05/24 EMS report documented PO 87%
05/24 ER Note: ' Lungs: Patient is hypoxic to the mid 80s requiring 6 L nasal cannula; she has moderate tachypnea with respiratory rate in the 30s but no increased work of breathing...'
Selected Entries
05/24/24
20:30 05/24/24
23:30 05/25/24
01:00
Resp Rate 31 32 35
Nasal Cannula flow liters per minute 6 6 6
Recognized standard criteria for respiratory failure includes:
(Source: ACP Hospitalist Jun 2013)
ABGs (1 or more)
�PO2 <60 or RA SpO2 <91%
�PcO2 >50 and pH <7.35
�pO2 decrease or pcO2 increase by 10 mmHg from baseline if known Symptoms:
�Tachypnea, SOB, dyspnea
�Pallor or cyanosis
�Anxiety or restlessness
�Use of accessory muscles
�Retractions (grunting in newborns)
�Unable to speak in complete sentences
Supplemental O2 requirement of 40% (5LPM) or more Intubation is not required
Based on the above information and the recognized standard for respiratory failure could you please verify this diagnoses is still accurate and reflective of the patient�s condition to ensure quality of the medical record.
Please clarify in the Progress Notes:
Respiratory failure is/was present and is a clinical diagnosis
After study respiratory failure has been ruled out
Other
Use of terms such as suspected, likely, concern for, or probable (associated with a specific diagnosis that is being evaluated, monitored, or treated as if it exists) are acceptable and can be coded in the inpatient setting, when documented at the
time of discharge.
Thank you,
Regla Manzo RN, BSN
CDI Specialist
Available via [place] Text
Please use your independent medical judgment in providing your response.
[2024-05-29 15:42] VITALS: BP 84/44
--- NOTE | 2024-05-29 15:50 | W.DCSUMMARY ---
Discharge Summary
Discharge Data
Date of Admission: 05/24/24
Date of Discharge: 05/29/24
-
Pending Results: Yes
Additional Pending Results:
official culture results
Discharge Plan
-
Patient Disposition: Home with Home Care
Discharge Diagnosis/Procedures: Acute hypoxic respiratory insufficiency likely secondary to pulmonary edema due to acute Heart Failure with Preserved Ejection Fraction
Acute Kidney Injury likely due to over diuresis (resolving)
Small bilateral pleural effusions
Pneumonia
paroxysmal atrial fibrillation status post ablation
Hypertension
Diabetes type II
Anemia
Condition: Fair
Diet: 2 Gram Sodium and Restrict fluids to 64 oz
Activity: As tolerated
Driving Restrictions: Not until seen by your Dr
Bathing Restrictions: None
Blood Work: Please repeat CBC and BMP with primary care provider in 1 week of discharge
Others Tests: Please obtain Chest X-ray with primary care provider in 1 week of discharge.
Other Services: VN, PT and OT
Specialty Instructions: Weigh Daily- Call MD for wt gain/loss 3 lbs overnight/5 lbs in 1 week
Activity Restrictions/Additional Instructions:
Please follow up with primary care provider in 1 week of discharge, Hematology (for further evaluation treatment anemia) in 2 weeks of discharge and keep your appointment with Cardiology.
Doxycycline has been prescribed to continue through 05/30/24, last day of antibiotics completing treatment for pneumonia.
Lasix has been prescribed for heart failure.
Stop Losartan at this time due to recent acute kidney injury and low pressures. Follow up with Cardiology or Primary care provider to determine when safe to resume, if necessary to resume, and/or if an alternative agent is required instead.
Please take medications as prescribed/recommended and follow up with primary care provider and/or other healthcare provider involved in your care for refills and/or further adjustment to your medication regimen as necessary.
Referrals:
Fercho Soto DO [Active] - in two weeks
Anette Rocha DO [Family Provider] - in one week
Jovany Wallace MD [Active] - 06/22/24 8:40 am (You have an appt to see Dr. Wallace at the [facility] on 06/22/24 at 8:40 AM. Please call [phone] if you need to reschedule.)
Additional Discharge Medication Instructions: -Take Lasix (furosemide) 20 mg once a day
-STOP taking losartan (Cozaar) for now, but it might be restarted in the future
Prescriptions:
New
furosemide [Lasix] 20 mg tablet
20 mg PO DAILY Qty: 30 11RF
doxycycline hyclate 100 mg Capsule
100 mg PO Q12 Qty: 3 0RF
Rx Instructions:
Last day of antibiotics 05/30/24
Continued
insulin aspart U-100 [Novolog U-100 Insulin aspart] 1,000 UNITS/10 ML solution
0 units SC .CONTINUOUS
Patient Comments:
05/24/24: Patient's own insulin pump
ascorbic acid (vitamin C) [Vitamin C] 500 MG tablet
500 mg PO DAILY
cholecalciferol (vitamin D3) 1,000 UNITS tablet
1,000 units PO DAILY
multivitamin with folic acid [Tab-A-Hannah] 1 TABLET tablet
1 tab PO DAILY
Eliquis 5 MG tablet
5 mg PO BID Qty: 60 2RF
acetaminophen [Tylenol Extra Strength] 500 mg Tablet
500 mg PO Q6HPRN PRN (Reason: mild pain)
pantoprazole 40 mg Tablet,Delayed Release (Dr/Ec)
40 mg PO DAILY
flecainide 100 mg Tablet
100 mg PO [id number] PRN (Reason: A-fib)
aspirin 81 mg Tablet,Chewable
81 mg PO DAILY
Systane (PF) 0.4-0.3 % Dropperette
1 drp BOTH EYES Q4HPRN PRN (Reason: dry eyes)
diltiazem HCl 120 MG capsule,extended release 24hr
120 mg PO BID
Discontinued
losartan 25 mg Tablet
25 mg PO HS
Discharge Orders:
Discharge Patient (As Directed); Ordered 05/29/24
Ordered By: Addy Adler
Discharge Date and Time
Print Language: [place]
[2024-05-29 16:33] LABS: Glucose - Point of Care 106 mg/dl (70-99)
[2024-05-29 16:35] VITALS: BP 128/53
[2024-05-29] MEDS: PT'S OWN INSULIN PUMP - NovoLOG SC (16:44)
== END 2024-05-29 17:28 | disposition home health service (06) | DRG 193 ==
LOC: 4 WEST ACU 22:29
PROVIDERS: Hospitalist; ADMITTING PHYSICIAN Internal Medicine; ATTENDING PHYSICIAN Internal Medicine; EMERGENCY PHYSICIAN Emergency Medicine; FAMILY PHYSICIAN Internal Medicine; OTHER PHYSICIAN Internal Medicine Cardiovascular Disease
DX: J18.9 Pneumonia, unspecified organism (principal); I50.31 Acute diastolic (congestive) heart failure; J96.01 Acute respiratory failure with hypoxia; N17.9 Acute kidney failure, unspecified; J91.8 Pleural effusion in other conditions classified elsewhere; I5A Non-ischemic myocardial injury (non-traumatic); I11.0 Hypertensive heart disease with heart failure; D64.9 Anemia, unspecified; E10.9 Type 1 diabetes mellitus without complications; I48.0 Paroxysmal atrial fibrillation; K21.9 Gastro-esophageal reflux disease without esophagitis; T50.2X5A Adverse effect of carbonic-anhydrase inhibitors, benzothiadiazides and other diuretics, initial encounter; G47.33 Obstructive sleep apnea (adult) (pediatric); I95.1 Orthostatic hypotension; R68.89 Other general symptoms and signs; Z79.01 Long term (current) use of anticoagulants; Z79.4 Long term (current) use of insulin; Z79.82 Long term (current) use of aspirin; Z79.899 Other long term (current) drug therapy; Z11.52 Encounter for screening for COVID-19; Z87.440 Personal history of urinary (tract) infections; Z88.2 Allergy status to sulfonamides
CPT/HCPCS: 71045; 76604; 80048; 80053; 82607; 82746; 82962; 83540; 83550; 83605; 83880; 84145; 84484; 85025; 85027; 85730; 86850; 86900; 86901; 87040; 87502; 87641; 87811; 93005; 93306; 94640; 96365; 97110; 97116; 97163; 99285

== ENCOUNTER → 2024-06-29 14:09 | Outpatient (REF) | payer MEDICARE, SELFPAY | LOC: HWRAD 14:09 | PROVIDERS: ATTENDING PHYSICIAN Internal Medicine Cardiovascular Disease; FAMILY PHYSICIAN Internal Medicine | DX: I48.0 Paroxysmal atrial fibrillation (principal) | CPT/HCPCS: 71046 ==

== ENCOUNTER → 2025-05-20 14:56 | Outpatient (REF) | payer MEDICARE, SELFPAY | LOC: HWRCS 14:56 | PROVIDERS: ATTENDING PHYSICIAN Internal Medicine Cardiovascular Disease; FAMILY PHYSICIAN Internal Medicine | DX: I48.0 Paroxysmal atrial fibrillation (principal); R06.02 Shortness of breath | CPT/HCPCS: 93306 ==

== ENCOUNTER → 2025-05-29 07:17 | Outpatient (REF) | payer MEDICARE, SELFPAY | LOC: HWRCS 07:17 | PROVIDERS: ATTENDING PHYSICIAN Internal Medicine Cardiovascular Disease; FAMILY PHYSICIAN Internal Medicine; OTHER PHYSICIAN Internal Medicine Cardiovascular Disease | DX: R06.02 Shortness of breath (principal); I48.0 Paroxysmal atrial fibrillation | CPT/HCPCS: 78452; 93017; A9500 ==

== ENCOUNTER 2025-05-31 11:16 | Emergency (ER) | payer MEDICARE, SELFPAY ==
[2025-05-31] VITALS (14 sets, daily range): BP systolic 122–153; BP diastolic 50–97; PULSE 69; BMI 23.8
[2025-05-31 12:18] LABS: Hematocrit 30.9 % (37.0-47.0); Hemoglobin 10.8 g/dL (12.0-16.0); Mean Corp Hgb Conc. 35.0 g/dL (33.0-37.0); Mean Corpuscular Volume 98.7 fL (81.0-99.0); Nucleated Red Blood Cells % 0 %; Platelet Count 216 10^3/uL (130-400); Red Cell Dist. Width 13.9 % (11.5-14.5)
[2025-05-31 12:27] LABS: ALT (SGPT) 15 U/L (0-35); AST (SGOT) 21 U/L (14-36); Albumin 4.3 g/dl (3.5-5.0); Alkaline Phosphatase 115 U/L (38-126); Blood Urea Nitrogen 33 mg/dl (7-17); Calcium 9.3 mg/dl (8.4-10.2); Carbon Dioxide 29 mmol/L (22-30); Chloride 103 mmol/L (98-107); Estimated Creatinine Clearance 30 ml/min; Glucose 107 mg/dl (70-99); Potassium 4.8 mmol/L (3.5-5.1); Sodium 136 mmol/L (135-145); Total Protein 7.1 g/dl (6.3-8.2); eGFR 44.64
--- NOTE | 2025-05-31 12:30 | ED.GENMED ---
History of Present Illness
<Sara Coyle ACOUSTICAL TILE PATTERNMAKER - Last Filed: 05/31/25 18:10>
General
Chief Complaint: Dizziness
Source: patient
Exam Limitations: none
Time Seen by Provider: 05/31/25 12:08
Nursing documentation reviewed up to this point in time: agreed with
History of Present Illness
History of Present Illness:
84-year-old female with history of A-fib on Eliquis, HTN, IDDM with insulin pump, ablation 04/2024, vertigo, presents for 'lightheadedness, not dizziness' since 10 this a.m. and increased shortness of breath with exertion over past few weeks. She
has a cardiac catheterization scheduled in 3 days (Tuesday) due to a concerning nuclear stress test.
Patient states her shortness of breath has improved since stopping her diltiazem last week.
The lightheadedness has been persistent and seems a little worse with movement. This morning when it started while she was moving around her kitchen, she went upstairs to get undressed and take a shower but decided she could not take a shower due
to the lightheadedness and called her daughters. No recent URI or other illness. She denies CP
She denies N/V/D/C. Denies fever or chills. Denies weakness or numbness in her extremities. Denies change in vision. Denies headache.
Past History
<Sara Coyle ACOUSTICAL TILE PATTERNMAKER - Last Filed: 05/31/25 18:10>
Past History
ED Past Medical History: Arrthythmia (Atrial fib), HTN, IDDM and Other (Ulcers)
ED Past Surgical History: Orthopedic (Right hand surgery)
Social History
Tobacco: Non-smoker
Alcohol: Occasional
Drug: None
Personal:
Living: alone
Phy Exam
<Sara Coyle, ACOUSTICAL TILE PATTERNMAKER - Last Filed: 05/31/25 18:10>
Physical Exam
Physical Exam:
GENERAL: No acute distress. A&Ox3.
CONSTITUTIONAL: Afebrile.
EYES: clear, conjunctivae normal
ENMT: moist mucus membranes, Pharynx nl
RESPIRATORY: Regular respirations, nonlabored, lungs clear.
CARDIOVASCULAR: Regular rate and rhythm, no murmurs, no rubs.
GI: Soft, nontender, normal BS
MUSCULOSKELETAL: Moves with ease. Well perfused.
SKIN: Warm, dry, pink
PSYCH: Normal mood and affect. Well kept, interactive and appropriate
NEUROLOGIC: Awake, alert and oriented. No focal neurological deficits
Course
<Sara Coyle ACOUSTICAL TILE PATTERNMAKER - Last Filed: 05/31/25 18:10>
Orders/Labs/Results
Orders:
Orders
05/31/25 11:17
ECG [Electrocardiogram (*1)] Urgent
Reason for Study: Vertigo / Dizzy
EKG- Treatment ONCE
05/31/25 12:05
Complete Blood Count/With Diff Urgent
Comprehensive Metabolic Panel Urgent
NT-proBNP Urgent
Comment: ADD ON
Troponin I Urgent
05/31/25 12:30
CT Head W/o Iv Contrast Urgent
Comment:
Reason For Exam: dizziness
05/31/25 13:06
Add On- LAB Urgent
Tests Added?: BNP
05/31/25 13:07
CR Chest - 2 Views Urgent
Comment:
Reason For Exam: lightheaded
05/31/25 13:37
Physical Therapy Consult [Pt Eval And Treat] Urgent
Treatment: Vestibular eval
Activity Level: As Tolerated
05/31/25 15:09
Troponin I Urgent
Urinalysis Reflex To Culture Urgent
Date Specimen was Collected: 05/31/25
Time Specimen was Collected: 14:46
05/31/25 18:22
Troponin I Urgent
Abnormal Lab Results
05/31/25
12:05
WBC 3.3 L 10^3/uL
(4.8-10.8)
RBC 3.13 L 10^6/uL
(4.20-5.40)
Hgb 10.8 L g/dL
(12.0-16.0)
Hct 30.9 L %
(37.0-47.0)
MCH 34.5 H pg
(27.0-31.0)
MPV 12.3 H fL
(7.4-10.4)
Absolute Lymphs (auto) 1.0 L 10^3/uL
(1.2-3.4)
Monocytes % 11.2 H %
(1.7-9.3)
BUN 33 H mg/dl
(7-17)
Creatinine 1.2 H mg/dL
(0.6-1.0)
Glucose 107 H mg/dl
(70-99)
05/31/25 12:05
05/31/25 12:05
Vital Signs
Initial and Last Documented VS:
Initial Vital Signs
Temp Pulse Resp BP Pulse Ox
97.9 F 87 20 122/66 97
05/31/25 11:18 05/31/25 11:18 05/31/25 11:18 05/31/25 11:18 05/31/25 11:18
Last Documented Vital Signs
Temp Pulse Resp BP Pulse Ox
97.9 F 72 17 142/54 95
05/31/25 11:18 05/31/25 18:00 05/31/25 18:00 05/31/25 18:00 05/31/25 18:00
Dinkey Operator Slag consulted with Physician
Dinkey Operator Slag consulted with physician?: Yes
Name of Physician Consulted: Tato
<Robin Godwin, DO - Last Filed: 05/31/25 16:53>
Orders/Labs/Results
Orders:
Orders
05/31/25 11:17
ECG [Electrocardiogram (*1)] Urgent
Reason for Study: Vertigo / Dizzy
EKG- Treatment ONCE
05/31/25 12:05
Complete Blood Count/With Diff Urgent
Comprehensive Metabolic Panel Urgent
NT-proBNP Urgent
Comment: ADD ON
Troponin I Urgent
05/31/25 12:30
CT Head W/o Iv Contrast Urgent
Comment:
Reason For Exam: dizziness
05/31/25 13:06
Add On- LAB Urgent
Tests Added?: BNP
05/31/25 13:07
CR Chest - 2 Views Urgent
Comment:
Reason For Exam: lightheaded
05/31/25 13:37
Physical Therapy Consult [Pt Eval And Treat] Urgent
Treatment: Vestibular eval
Activity Level: As Tolerated
05/31/25 15:09
Troponin I Urgent
Urinalysis Reflex To Culture Urgent
Date Specimen was Collected: 05/31/25
Time Specimen was Collected: 14:46
05/31/25 18:22
Troponin I Urgent
Abnormal Lab Results
05/31/25
12:05
WBC 3.3 L 10^3/uL
(4.8-10.8)
RBC 3.13 L 10^6/uL
(4.20-5.40)
Hgb 10.8 L g/dL
(12.0-16.0)
Hct 30.9 L %
(37.0-47.0)
MCH 34.5 H pg
(27.0-31.0)
MPV 12.3 H fL
(7.4-10.4)
Absolute Lymphs (auto) 1.0 L 10^3/uL
(1.2-3.4)
Monocytes % 11.2 H %
(1.7-9.3)
BUN 33 H mg/dl
(7-17)
Creatinine 1.2 H mg/dL
(0.6-1.0)
Glucose 107 H mg/dl
(70-99)
05/31/25 12:05
05/31/25 12:05
Vital Signs
Initial and Last Documented VS:
Initial Vital Signs
Temp Pulse Resp BP Pulse Ox
97.9 F 87 20 122/66 97
05/31/25 11:18 05/31/25 11:18 05/31/25 11:18 05/31/25 11:18 05/31/25 11:18
Last Documented Vital Signs
Temp Pulse Resp BP Pulse Ox
97.9 F 72 17 142/54 95
05/31/25 11:18 05/31/25 18:00 05/31/25 18:00 05/31/25 18:00 05/31/25 18:00
<Lux Hood PA-C - Last Filed: 05/31/25 19:16>
Orders/Labs/Results
Orders:
Orders
05/31/25 11:17
ECG [Electrocardiogram (*1)] Urgent
Reason for Study: Vertigo / Dizzy
EKG- Treatment ONCE
05/31/25 12:05
Complete Blood Count/With Diff Urgent
Comprehensive Metabolic Panel Urgent
NT-proBNP Urgent
Comment: ADD ON
Troponin I Urgent
05/31/25 12:30
CT Head W/o Iv Contrast Urgent
Comment:
Reason For Exam: dizziness
05/31/25 13:06
Add On- LAB Urgent
Tests Added?: BNP
05/31/25 13:07
CR Chest - 2 Views Urgent
Comment:
Reason For Exam: lightheaded
05/31/25 13:37
Physical Therapy Consult [Pt Eval And Treat] Urgent
Treatment: Vestibular eval
Activity Level: As Tolerated
05/31/25 15:09
Troponin I Urgent
Urinalysis Reflex To Culture Urgent
Date Specimen was Collected: 05/31/25
Time Specimen was Collected: 14:46
05/31/25 18:22
Troponin I Urgent
Abnormal Lab Results
05/31/25
12:05
WBC 3.3 L 10^3/uL
(4.8-10.8)
RBC 3.13 L 10^6/uL
(4.20-5.40)
Hgb 10.8 L g/dL
(12.0-16.0)
Hct 30.9 L %
(37.0-47.0)
MCH 34.5 H pg
(27.0-31.0)
MPV 12.3 H fL
(7.4-10.4)
Absolute Lymphs (auto) 1.0 L 10^3/uL
(1.2-3.4)
Monocytes % 11.2 H %
(1.7-9.3)
BUN 33 H mg/dl
(7-17)
Creatinine 1.2 H mg/dL
(0.6-1.0)
Glucose 107 H mg/dl
(70-99)
05/31/25 12:05
05/31/25 12:05
Vital Signs
Initial and Last Documented VS:
Initial Vital Signs
Temp Pulse Resp BP Pulse Ox
97.9 F 87 20 122/66 97
05/31/25 11:18 05/31/25 11:18 05/31/25 11:18 05/31/25 11:18 05/31/25 11:18
Last Documented Vital Signs
Temp Pulse Resp BP Pulse Ox
97.9 F 72 17 142/54 95
05/31/25 11:18 05/31/25 18:00 05/31/25 18:00 05/31/25 18:00 05/31/25 18:00
<Saraseth Coyle ACOUSTICAL TILE PATTERNMAKER - Last Filed: 05/31/25 18:10>
MDM/Problems Addressed
Differential Diagnosis Includes:
Orthostatic hypotension, BPPV, TIA, CVA, medication side effect, dehydration, anemia, electrolyte imbalance
MDM/Problems Addressed:
84-year-old female with history of A-fib on Eliquis, HTN, IDDM with insulin pump, ablation 04/2024, vertigo, presents for 'lightheadedness, not dizziness' since 10 this a.m. and increased shortness of breath with exertion over past few weeks. She
has a cardiac catheterization scheduled in 3 days (Tuesday) due to a concerning nuclear stress test.
Patient states her shortness of breath has improved since stopping her diltiazem last week.
The lightheadedness has been persistent and seems a little worse with movement. This morning when it started while she was moving around her kitchen, she went upstairs to get undressed and take a shower but decided she could not take a shower due
to the lightheadedness and called her daughters. No recent URI or other illness. She denies CP
She denies N/V/D/C. Denies fever or chills. Denies weakness or numbness in her extremities. Denies change in vision. Denies headache.
EKG NSR
CBC with no clinically significant abnormality hemoglobin much improved from last
CMP with no clinically significant abnormality consistent with her chronic CKD
Troponin 0.012 NL
BNP normal head CT unremarkable
Orthostatics: Laying flat heart rate 69 BP 135/54
Sitting heart rate 70 BP 136/60
Standing heart rate 80 blood pressure 128/60
Patient asymptomatic during the changes of position, lightheadedness remained mild but constant
Dr. Beverly, Cardiology consulted, states if 2 Troponin are undetectable okay to go and return for cath on Tuesday
2:15 PM:
Physical therapy and for a vestibular evaluation and found no indication of that
4:00 PM:
second troponin mildly bumped at 0.024
Case discussed with Dr. Godwin who evaluated patient and spoke with patient and family
Patient has had no chest pain
Will check a third troponin. If OK, pt can go home.
6:10 PM:
Patient awaiting third troponin, case discussed with Slim Hood who will assume care from this point.
<Sara Coyle ACOUSTICAL TILE PATTERNMAKER - Last Filed: 05/31/25 18:10>
*Pulse Oximetry
SaO2: 99
Oxygen Mode of Delivery: Room air
Patient hypoxic: no
*EKG
EKG Intrepretation Date: 05/31/25
Interpretation: normal
Comparison EKG: no comparison EKG present
Heart Rate: 79
Rate: normal
Rhythm: sinus
[place]: normal axis
Interval: normal interval
QRS Pattern: normal QRS
<Lux Hood PA-C - Last Filed: 05/31/25 19:16>
*Critical Care Note
Total Time (30-74mins, 75-104mins- exclusive of procedures): Not Applicable
<Lux Hood PA-C - Last Filed: 05/31/25 19:16>
Update Note
Update Note:
Received care of patient pending third troponin. Third troponin is undetectable which is improved from the second. She is not having any current chest pain. She states she feels okay at this time. She is due for heart catheterization this coming
Tuesday in 2 days. Discussed with cardiology on-call who agreed that she would be safe for discharge. She will continue taking her current medication. She was advised to avoid strenuous activity
ED Attending Note
<Sara Coyle, ACOUSTICAL TILE PATTERNMAKER - Last Filed: 05/31/25 18:10>
-
Portions of this chart may have been created with voice recognition software.� Occasional wrong word or��sound alike� substitutions may have occurred due to the inherent limitations of voice recognition software.
<Robin Godwin, DO - Last Filed: 05/31/25 16:53>
ED Attending Note
Patient seen and examined by attending physician: Yes
ED Attending Note:
I have reviewed and agree with history treatment plan by Elma Coyle. My exam revealed 84-year-old female in no acute distress. Vital signs stable. Troponin negative x 2. Will repeat troponin 1 more time. If negative patient may be discharged
home to follow-up on Tuesday for cardiac catheterization. If it elevated patient will be admitted.
Discharge Plan
Departure
Patient Disposition: Home (Routine Discharge)
Date of Disposition: 05/31/25
Time of Disposition: 19:15
Patient with high blood pressure during this ER visit?: No
Discharge Problem:
Lightheadedness
Instructions: Dizziness
Prescriptions:
No Action
insulin aspart U-100 [Novolog U-100 Insulin aspart] 1,000 UNITS/10 ML solution
0 units SC .CONTINUOUS
Patient Comments:
05/24/24: Patient's own insulin pump
ascorbic acid (vitamin C) [Vitamin C] 500 MG tablet
500 mg PO DAILY
cholecalciferol (vitamin D3) 1,000 UNITS tablet
1,000 units PO DAILY
multivitamin with folic acid [Tab-A-Hannah] 1 TABLET tablet
1 tab PO DAILY
Eliquis 5 MG tablet
5 mg PO BID Qty: 60 2RF
acetaminophen [Tylenol Extra Strength] 500 mg Tablet
500 mg PO Q6HPRN PRN (Reason: mild pain)
pantoprazole 40 mg Tablet,Delayed Release (Dr/Ec)
40 mg PO DAILY
flecainide 100 mg Tablet
100 mg PO [id number] PRN (Reason: A-fib)
aspirin 81 mg Tablet,Chewable
81 mg PO DAILY
Systane (PF) 0.4-0.3 % [place]
1 drp BOTH EYES Q4HPRN PRN (Reason: dry eyes)
diltiazem HCl 120 MG capsule,extended release 24hr
120 mg PO BID
furosemide [Lasix] 20 mg tablet
20 mg PO DAILY Qty: 30 11RF
doxycycline hyclate 100 mg Capsule
100 mg PO Q12 Qty: 3 0RF
Rx Instructions:
Last day of antibiotics 05/30/24
Referrals:
Anette Rocha DO [Family Provider, Internal Medicine]
Activity Restrictions/Additional Instructions:
Please avoid strenuous activity. Continue current medication regimen. Return if worse otherwise follow-up with your veneer clipper as planned next week for catheterization
Interventions
Interventions:
*Risk Screen - Suicide Last Done: 05/31/25 11:18
*General Assessment Last Done: 05/31/25 12:01
*Neglect/Abuse Screening Last Done: 05/31/25 12:01
*ED- Fall Risk Assessment Last Done: 05/31/25 12:01
*ED COVID-19 Vaccine History Last Done: 05/31/25 12:01
*ED Influenza Vaccine History Last Done: 05/31/25 12:01
ED- Neurological Assessment Last Done: 05/31/25 12:18
ED- Cardiac Assessment Last Done: 05/31/25 12:18
ED Swallowing Screen Last Done: 05/31/25 14:00
Discharge Date and Time
Print Language: CITIZEN OF [place]
[2025-05-31 12:40] LABS: Troponin I < 0.012 ng/ml
[2025-05-31 15:46] LABS: Troponin I 0.024 ng/ml
[2025-05-31 15:59] LABS: Urine Character Clear (Clear)
[2025-05-31 18:58] LABS: Troponin I < 0.012 ng/ml
== END 2025-05-31 19:51 | disposition home or self-care (01) ==
LOC: EMR 11:16
PROVIDERS: Registered Nurse; EMERGENCY PHYSICIAN Emergency Medicine; FAMILY PHYSICIAN Internal Medicine
DX: R42 Dizziness and giddiness (principal); I48.91 Unspecified atrial fibrillation; I10 Essential (primary) hypertension; E11.9 Type 2 diabetes mellitus without complications; Z79.4 Long term (current) use of insulin; Z96.41 Presence of insulin pump (external) (internal); Z79.01 Long term (current) use of anticoagulants
CPT/HCPCS: 99284; 70450; 71046; 80053; 81003; 83880; 84484; 85025; 93005

== ENCOUNTER 2025-06-03 06:34 | Day surgery (SDC) | payer MEDICARE, SELFPAY ==
[2025-06-03] VITALS (10 sets, daily range): BP systolic 125–151; BP diastolic 45–61; BMI 24.5
[2025-06-03] MEDS: LOW STRENGTH ASPIRIN 81 MG PO (07:14)
[2025-06-03 07:25] LABS: Hematocrit 31.8 % (37.0-47.0); Hemoglobin 10.7 g/dL (12.0-16.0); Mean Corp Hgb Conc. 33.6 g/dL (33.0-37.0); Mean Corpuscular Volume 100.0 fL (81.0-99.0); Platelet Count 234 10^3/uL (130-400); Red Cell Dist. Width 13.6 % (11.5-14.5)
[2025-06-03 08:13] LABS: Blood Urea Nitrogen 27 mg/dl (7-17); Calcium 9.5 mg/dl (8.4-10.2); Carbon Dioxide 26 mmol/L (22-30); Chloride 108 mmol/L (98-107); Estimated Creatinine Clearance 33 ml/min; Glucose 115 mg/dl (70-99); Potassium 4.8 mmol/L (3.5-5.1); Sodium 137 mmol/L (135-145); eGFR 55.55
[2025-06-03 09:33] LABS: ACT-LR - POC 269 Seconds (116-155)
[2025-06-03 10:18] LABS: ACT-LR - POC 297 Seconds (116-155)
--- NOTE | 2025-06-03 10:18 | ITS.CL.CATH ---
Addendum entered and electronically signed by Jovany Guevara MD 07/10/25 09:33:
Attending addendum: Correct procedure date : June 03, 2025
Original Note:
[facility] - Catheterization
Cardiac Catheterization
Procedure Report:
LEFT HEART CATH AND CORONARY INTERVENTION
Date of Procedure: June 13, 2025
Referring: Dr. Jovany Wallace
PROCEDURES:
1. Right heart catheterization
2. Left heart catheterization with coronary and single-plane left ventriculography
3. Hemodynamic assessment of LAD and diagonal branch. The iFR in the LAD fell within normal limits while the iFR in the diagonal fell below the ischemic threshold
4. Successful stenting of diagonal branch with a 2.25 x 15 mm [place] stent that was implanted at nominal pressures and postdilated with a 2.25 mm noncompliant balloon
INDICATION: This is an 84-year-old female with a past medical history notable for longstanding diabetes mellitus and diastolic heart failure. She has experienced a progressive decline in functional capacity. She exercised 5 minutes on a Sudarshan
protocol with a small fixed inferobasal defect noted. She presented to the emergency room following her stress test with ongoing shortness of breath and is now referred for right and left heart catheterization.
ACCESS: Right radial artery, 6 Martiniqu[place] sheath and right brachial vein, 5 [place] sheath
HEMODYNAMICS : mmHg
RA (m) : 6
RV (s/d) : 22/2, 5
PA (s/d, m) : 22/7, 14
PCWP (m) : 8
AO (s/d, m) : 130/49, 82
LV (s/d) : 132/8
LVEDP : 18
Estimated [place] Cardiac Output: 4.9 L / min and Cardiac Index: 3.1 L/ min / m-2
Systemic vascular resistance: 15.5 Wood units or 1241 [id number](-5)
Pulmonary vascular resistance: 1.22 Wood units or 98 [id number](-5)
CORONARY FINDINGS
Dominance: Right
LEFT MAIN: Mild distal tapering
LEFT ANTERIOR DESCENDING: The LAD arises normally from the left main and runs in the anterior interventricular groove. The LAD supplies a very small first diagonal branch with a 90% ostial stenosis. This diagonal supplies a very limited territory.
The second diagonal branch is a large and supplies a vascular distribution similar to that of the LAD and has a 60% proximal stenosis. At the conclusion of the diagnostic angiogram we proceeded with hemodynamic assessment of this large second
diagonal branch and the iFR serially measured below the ischemic threshold at 0.86, 0.87, 0.85, 0.85, and 0.84. The mid LAD just beyond the diagonal branch has a smooth 40% narrowing. The LAD tapers to a small caliber vessel and the IFR serially
measured just above the ischemic threshold at 0.90 and 0.90
CIRCUMFLEX: The circumflex is a medium caliber nondominant vessel that gives rise to a single large obtuse marginal branch which is widely patent
RIGHT CORONARY: The right coronary artery is a medium caliber dominant vessel with minor irregularities but no focal obstructive stenosis over its course. The PDA appears widely patent as does the posterolateral branch.
VENTRICULOGRAPHY: Left ventriculography is performed in an [place] projection. The digital single-plane left ventricular ejection fraction is estimated greater than 65%. No regional wall motion abnormalities are noted.
HEMODYNAMIC ASSESSMENT OF THE SECOND DIAGONAL AND LAD WITH A VOLCANO OMNI WIRE: The origin of the left main was cannulated with a 6 Fr XB 3 guide catheter. Intravenous heparin was administered and the ACT was followed during the procedure. Two
hundred micrograms of intracoronary nitroglycerin was given through the guide catheter. A Rosalie Omni wire was advanced to the guide catheter tip and normalized to guide catheter pressure. The Omni wire was then carefully manipulated across the
stenosis in the second diagonal branch and the IFR serially measured below the ischemic threshold at 0.86, 0.87, 0.85, 0.85, and 0.84. The Omni wire was withdrawn to the guide catheter. No baseline drift was appreciated. The tip of the wire was
redirected towards the LAD and advanced into the mid and distal LAD well beyond the second diagonal branch origin. The IFR measured just above the ischemic threshold at 0.90 and 0.90. The Omni wire was then pulled back to the guide catheter where
the Pd/Pa measured 1.0 confirming no baseline drift in pressure readings
ANGIOPLASTY PROCEDURE DETAIL: The decision was made to proceed with coronary intervention based on the angiographic and iFR results. A 180 mg loading dose of ticagrelor was administered and intravenous heparin was given to maintain a therapeutic
ACT. A BMW wire was advanced across the stenosis in the diagonal branch and balloon predilation was performed using a 2.0 mm Euphora balloon and was followed by placement of a 2.25 x 15 mm [place] stent that was implanted at nominal pressures and
postdilated with a 2.5 mm noncompliant balloon with a nice angiographic result
SEDATION: 82 minutes of procedural sedation was utilized. An independent medical imaging technician was present to assist with and help manage the patient's level of consciousness and physiologic status
RADIATION SUMMARY: Fluoro Time (min): 17.3, Dose (mGy): 511, DAP (Gy.cm2) : 25.5
CONCLUSIONS
1. Successful stenting of moderate caliber second diagonal branch that supplies a large vascular territory after the iFR measured below the ischemic threshold. The diagonal underwent predilation and stenting with a 2.25 x 15 mm Jerry stent that was
postdilated with a 2.25 mm noncompliant balloon
2. The iFR in the LAD measured above the ischemic threshold
3. Compensated right and left ventricular filling pressures
4. Preserved LV systolic function
RECOMMENDATIONS
1. Patient received 180 mg loading dose of ticagrelor at the beginning of the interventional procedure. She will receive 600 mg of clopidogrel tomorrow morning then take 75 mg of clopidogrel daily for 3 to 6 months.
2. Aspirin 81 mg daily
3. GI prophylaxis
4. Light activity with right hand for 7 days. She will follow-up with Dr. Jovany Wallace
Copy to: Dr. Jovany Wallace
[2025-06-03] MEDS: TYLENOL 650 MG PO (11:52)
[2025-06-03 12:53] LABS: ACT-LR - POC > 397 Seconds (116-155)
[2025-06-03 12:53] LABS: ACT-LR - POC 263 Seconds (116-155)
--- NOTE | 2025-06-03 14:19 | W.PN.UPDATE ---
Update Note
Progress Note Update
Pt seen post Diagonal PCI w/1 MILA. Right radial cath site without ht/bleeding, non tender. Post EKG NSR w/inferior STT abn as before, no acute changes.
Pt and daughter understand importance of uninterrupted DAPT w/asa, clopidogrel. She had been given ticagrelor 180mg load on the cath table at time of stenting. She will transition to clopidogrel with a 600mg load on 06/04 in AM and then start
75mg daily there after. Pt is aware of this instruction, and outpt pharmacy was called to clarify this instruction as well. Also new start to atorvastatin 40mg daily. She was concerned with GI bleeding on DAPT, as she had a gastric ulcer some 15
years ago that has not been an issue since. Pt agreeable to daily protonix while on DAPT.
Cardiac rehab consulted. Followup at [facility] as scheduled. Home today if cath site/tele remain stable.
[2025-06-04 08:59] LABS: Glucose - Point of Care 103 mg/dl (70-99)
== END 2025-06-03 15:11 | disposition home or self-care (01) ==
LOC: CATH 06:34
PROVIDERS: ATTENDING PHYSICIAN Internal Medicine Interventional Cardiology; FAMILY PHYSICIAN Internal Medicine; OTHER PHYSICIAN Internal Medicine Cardiovascular Disease
DX: I25.10 Atherosclerotic heart disease of native coronary artery without angina pectoris (principal); I50.32 Chronic diastolic (congestive) heart failure; E11.9 Type 2 diabetes mellitus without complications; I48.0 Paroxysmal atrial fibrillation; Z79.82 Long term (current) use of aspirin; Z79.02 Long term (current) use of antithrombotics/antiplatelets; Z79.899 Other long term (current) drug therapy; Z79.4 Long term (current) use of insulin
CPT/HCPCS: 93799; 80048; 82962; 85027; 85347; 93005; 93460; 99152; 99153; C1725; C1769; C1874; C1894; C9600; Q9967

== ENCOUNTER 2025-08-28 09:59 | Outpatient (RCR) | payer MEDICARE, SELFPAY ==
[2025-08-26 12:31] LABS: Glucose - Point of Care 114 mg/dl (70-99)
[2025-08-28 09:13] LABS: Glucose - Point of Care 150 mg/dl (70-99)
[2025-08-28 10:11] LABS: Glucose - Point of Care 94 mg/dl (70-99)
== END 2025-08-28 23:59 | disposition home or self-care (01) ==
LOC: CRHB 09:59
PROVIDERS: ATTENDING PHYSICIAN Family Medicine
DX: Z95.5 Presence of coronary angioplasty implant and graft (principal); I25.10 Atherosclerotic heart disease of native coronary artery without angina pectoris (principal)
CPT/HCPCS: 82962; G0422; G0423